=== PATIENT | female | born 1940 | race Caucasian/White ===

== ENCOUNTER → 2016-02-15 | Outpatient (CLI) | payer MEDICARE, OTHER ==
--- NOTE | 2016-02-15 09:49 | MRI ---
EXAM DESCRIPTION: Brain MRI. CLINICAL HISTORY: Acute onset of Dizziness COMPARISON: None. TECHNIQUE: Multiplanar, multisequence MR images were acquired without IV contrast. FINDINGS: The midline structures are unremarkable on today's study. No restricted diffusion on today's exam. Extensive chronic microvascular ischemic change with confluent T2 hyperintensities noted within the subcortical, deep and periventricular white matter. No evidence of acute or old infarct. No abnormal extra-axial fluid. The ventricles are midline and unremarkable. The basilar cisterns are widely patent. Flow voids are maintained within the intracranial vessels. The orbits and globes are unremarkable. The paranasal sinuses are clear except for mild mucosal thickening within the sphenoid sinuses. IMPRESSION: Today's exam demonstrates extensive chronic microvascular ischemic change with no evidence of an acute infarct on today's exam. The remaining study is unremarkable. Electronically signed by: Tommy Childress MD 02/15/2016 09:48
== END ==
LOC: MRI 08:18
PROVIDERS: ATTEND Nurse Practitioner Family
DX: R42 Dizziness and giddiness (principal)

== ENCOUNTER → 2016-03-31 | Outpatient (CLI) | payer MEDICARE, OTHER | END | disposition home or self-care (01) | LOC: GMAM 15:32 | PROVIDERS: ATTEND Family Medicine | DX: D51.9 Vitamin B12 deficiency anemia, unspecified (principal); E55.9 Vitamin D deficiency, unspecified; R31.29 Other microscopic hematuria ==

== ENCOUNTER 2016-04-12 13:54 | Emergency (ER) | payer MEDICARE, OTHER ==
[2016-04-12] MEDS ORDERED: KETOROLAC TROMETHAMINE INJ 30 MG/ML VIAL IM ONE (14:14)
--- NOTE | 2016-04-12 15:15 | RAD ---
PROCEDURE: Chest,2 Views CLINICAL HISTORY: upper thoracic pain INDICATION: Same as above COMPARISON: 02/18/2015 TECHNIQUE: PA and and lateral chest radiographs were obtained. FINDINGS: Note is again made of a benign calcified granuloma in the left upper lobe of the lung. Degenerative changes are seen in the thoracic spine. There are no discrete airspace infiltrates, pneumothoraces or pleural effusions. The pulmonary vascularity is normal The cardiomediastinal silhouette is unremarkable for patient's age and sex. IMPRESSION: There is no acute pleural-parenchymal process seen in the imaged lung omer. Degenerative changes are seen in the thoracic spine. Place of interpretation: [facility]. Electronically signed by: Wilder Haynes MD 04/12/2016 3:14 PM [facility]
--- NOTE | 2016-04-12 15:17 | RAD ---
PROCEDURE: Cervical Spine,3 Views Clinical History: upper thoracic pain Indication: Same as above Comparison: None . Technique: 3.0 views of the cervical spine were done. Findings: There is no loss of vertebral body height. The intervertebral disc spaces are well-maintained. Minimal anterior osteophyte formation is seen at C4 and C5 levels suggestive of underlying mild degenerative change The prevertebral soft tissues appear unremarkable. The bone mineralization is normal for patient's age and sex. The posterior elements are normal. The craniovertebral junction, tip of the odontoid process, C1/C2 alignment and the C7/T1 interface is intact. The laryngotracheal airway is widely patent. The adjacent soft tissues are radiographically unremarkable. There is no visualization of any radiopaque foreign bodies in the soft tissues. Impression: Minimal anterior osteophyte formation is seen at C4 and C5 levels suggestive of underlying mild degenerative change Place of interpretation: [id number]. Electronically signed by: Wilder Haynes MD 04/12/2016 3:16 PM STIPPLER
[2016-04-12] MEDS ORDERED: KETOROLAC TROMETHAMINE INJ 30 MG/ML VIAL ONE (15:19)
--- NOTE | 2016-04-12 15:52 | ED.PDOC ---
History of Present Illness - General Chief Complaint: Chest Pain/IA Stated Complaint: LEFT SHOULDER PAIN Time Seen by Provider: 04/12/16 14:13 Source: patient Exam Limitations: no limitations - History of Present Illness Initial Comments: the patient is a 75-year-old female presenting to the emergency room secondary to pain in her left shoulder and posterior upper back that radiates down the left arm and up to her scalp. This pain has been present for less than 24 hours. It is worse with movement. It is worse with turning her head and looking to the left. She does not recall injuring it in the last few days. No definite repetitive motions. She has not had this problem before. No recent injuries. No chest pain. No shortness of breath. no syncope or Near syncope or palpitations.the patient is also complaining of mild urinary frequency. No burning. No back pain in the lower back. Timing/Duration: 24 hours Severity: moderate Improving Factors: rest Worsening Factors: movement Associated Symptoms: denies symptoms Allergies/Adverse Reactions: Allergies Sulfa Antibiotics Allergy (Severe, Verified 03/16/14 10:46) Rash Lisinopril Allergy (Mild, Verified 09/12/14 16:24) makes her cough Sulfamethoxazole w/Trimethoprim [From Bactrim] Allergy (Unknown, Verified 12:16) Aspirin Adverse Reaction (Verified 02/18/15 19:56) Feels like it villa her stomache Home Medications: Ambulatory Orders Multiple Vitamin [Multi-Vitamin] 1 tab PO DAILY 03/16/14 Raloxifene HCl [Evista] 60 mg PO DAILY 03/16/14 Valsartan [Diovan] 160 mg PO DAILY 03/16/14 Naproxen [Naprosyn] 500 mg PO PRN PRN 02/18/15 Warfarin Sodium 5 mg PO DAILY 02/18/15 predniSONE [Prednisone] 20 mg PO DAILY #7 tab 02/18/15 Cyclobenzaprine HCl [Flexeril] 5 mg PO TID PRN #30 tab 04/12/16 Review of Systems - Review of Systems Constitutional: States: no symptoms reported EENTM: States: no symptoms reported Respiratory: States: no symptoms reported Cardiology: States: no symptoms reported Gastrointestinal/Abdominal: States: no symptoms reported Genitourinary: States: no symptoms reported Musculoskeletal: States: see HPI Skin: States: no symptoms reported Neurological: States: no symptoms reported All other Systems: No Change from Baseline Past Medical History (General) - Patient Medical History Hx Seizures: No Hx Stroke: Yes - tia Hx Dementia: No Hx Asthma: No Hx of COPD: No Hx Cardiac Disorders: Yes Hx Congestive Heart Failure: No Hx Pacemaker: No Hx Hypertension: Yes Hx Thyroid Disease: No Hx Diabetes: No Hx Gastroesophageal Reflux: Yes Hx Renal Disease: No Hx Cancer: Yes - cervical prior to removal; 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 Hx of HIV: No Hx Hepatitis C: No Hx MRSA: No - Vaccination History Hx Tetanus, Diphtheria Vaccination: Yes Hx Influenza Vaccination: Yes - 2016 Hx Pneumococcal Vaccination: Yes - Social History Hx Tobacco Use: No Hx Chewing Tobacco Use: No Hx Alcohol Use: Yes - occasional Hx Substance Use: No Hx Substance Use Treatment: No Hx Depression: No Hx Physical Abuse: No Hx Emotional Abuse: No Hx Suspected Abuse: No - Female History Patient is a Female of Child Bearing Age (10 -59 yrs old): No Patient : No Family Medical History - Family History Mother Family History: No Known Living Status: Hx Family Congestive Heart Failure: Yes Physical Exam - Physical Exam General Appearance: Alert, Comfortable, No apparent distress Eye Exam: bilateral normal Ears, Nose, Throat: hearing grossly normal, normal ENT inspection, normal pharynx Neck: full range of motion, supple, other - there is some muscle spasm to the left of the cervical spine primarily with turning to the left. She hasn't tenderness to palpation to the left the cervical spine that extends down the length of trapezius muscle that is worse just superior to the rhomboid muscle. Respiratory: chest non-tender, lungs clear, normal breath sounds, no respiratory distress, no accessory muscle use Cardiovascular/Chest: normal peripheral pulses, regular rate, rhythm, no edema Peripheral Pulses: radial,right: 2+, radial,left: 2+ Gastrointestinal/Abdominal: normal bowel sounds, non tender, soft Rectal Exam: deferred Back Exam: no vertebral tenderness, other - see history of present illness. The patient does have tenderness to palpation over the trapezius muscle, worse just superior to the rhomboid muscle. There is obvious muscle spasm. 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 She needs to increase her fluid intake. She needs to do stretches to keep the shoulder stretched out. She was given 1 dose of Toradol with good benefit here. She can take Aleve 2 tablets twice daily at home. She' ll be written for Flexeril for 3 times a day use as needed. She needs to be careful for drowsiness with this medication. Topical heat in the form of a heat pad or icy hot or Biofreeze may prove beneficial. ER warnings are given for any acute worsening. Expect symptoms to last around 1 week. x-rays of the chest and cervical spine are reassuring. Urinalysis was clear today. - Results/Orders Results/Orders: x-ray of the chest and cervical spine show no evidence of any acute pathology. She does have arthritis. She does have chronic findings on her chest x-ray. Telemetry monitoring shows normal sinus rhythm and mild sinus bradycardia. EKG shows no acute ST segment changes concerning for ischemia. Normal axis. Normal sinus rhythm. Departure - Departure Clinical Impression: Trapezius muscle spasm Disposition: Discharge to Home or Self Care Condition: Fair Departure Forms: ED Discharge - Pt. Copy, Patient Portal Self Enrollment Instructions: DI for Back Spasm Diet: regular diet Activity: increase activity as tolerated Referrals: Farhad Del Rio MD [Primary Care Provider] - 1-2 Weeks Prescriptions: Cyclobenzaprine HCl [Flexeril] 5 mg PO TID PRN #30 tab PRN Reason: Muscle Spasms Home Medications: Ambulatory Orders Multiple Vitamin [Multi-Vitamin] 1 tab PO DAILY 03/16/14 Raloxifene HCl [Evista] 60 mg PO DAILY 03/16/14 Valsartan [Diovan] 160 mg PO DAILY 03/16/14 Naproxen [Naprosyn] 500 mg PO PRN PRN 02/18/15 Warfarin Sodium 5 mg PO DAILY 02/18/15 predniSONE [Prednisone] 20 mg PO DAILY #7 tab 02/18/15 Cyclobenzaprine HCl [Flexeril] 5 mg PO TID PRN #30 tab 04/12/16 Additional Instructions: the patient is a 75-year-old female presenting with trapezius spasm on the left. She needs to increase her fluid intake. She needs to do stretches to keep the shoulder stretched out. She was given 1 dose of Toradol with good benefit here. She can take Aleve 2 tablets twice daily at home. She' ll be written for Flexeril for 3 times a day use as needed. She needs to be careful for drowsiness with this medication. Topical heat in the form of a heat pad or icy hot or Biofreeze may prove beneficial. ER warnings are given for any acute worsening. Expect symptoms to last around 1 week. x-rays of the chest and cervical spine are reassuring. Urinalysis was clear today.
[2016-04-12] MEDS ORDERED: CYCLOBENZAPRINE HCL 10 MG TAB PO ONE (15:57)
[2016-04-12 17:02] VITALS: BP 144/68; TEMP 98.9; O2SAT 95
== END 2016-04-12 16:10 | disposition home or self-care (01) ==
LOC: ER 13:54
DX: M62.838 Other muscle spasm (principal); I10 Essential (primary) hypertension; Z86.73 Personal history of transient ischemic attack (TIA), and cerebral infarction without residual deficits; Z79.899 Other long term (current) drug therapy; Z79.01 Long term (current) use of anticoagulants; Z88.2 Allergy status to sulfonamides; Z88.6 Allergy status to analgesic agent; Z88.8 Allergy status to other drugs, medicaments and biological substances
CPT/HCPCS: 71020; 72040; 81001; 93005; 94760; J1885

== ENCOUNTER → 2016-04-16 | Outpatient (CLI) | payer MEDICARE, OTHER | END | disposition home or self-care (01) | LOC: GMAM 16:46 | PROVIDERS: ATTEND Family Medicine | DX: L60.8 Other nail disorders (principal) ==

== ENCOUNTER 2016-04-21 13:14 | Emergency (ER) | payer MEDICARE, OTHER ==
[2016-04-21 13:49] VITALS: BP 130/73; TEMP 99.6; O2SAT 92
[2016-04-21] MEDS ORDERED: SODIUM PHOS/BIPHOS ENEMA ADULT 133 ML BTTL PR ONE (14:10)
--- NOTE | 2016-04-21 14:13 | ED.PDOC ---
History of Present Illness - General Chief Complaint: GI Problem Stated Complaint: Constipation Time Seen by Provider: 04/21/16 14:09 Source: patient, RN notes reviewed, Vital Signs reviewed Exam Limitations: no limitations - History of Present Illness Initial Comments: Patient is a 75 y/o female who has had constipation for the past 3 days. She has been taking cyclobenzaprine for her shoulder, and has had constipation since. Her last bowel movement was 4 days ago. She has left lower quadrant pain. No nausea/vomiting. Timing/Duration: other - 3 days Severity: moderate Improving Factors: nothing Worsening Factors: medication Associated Symptoms: denies symptoms Allergies/Adverse Reactions: Allergies Sulfa Antibiotics Allergy (Severe, Verified 04/21/16 13:49) Rash Lisinopril Allergy (Mild, Verified 04/21/16 13:49) makes her cough Sulfamethoxazole w/Trimethoprim [From Bactrim] Allergy (Unknown, Verified 13:49) Aspirin Adverse Reaction (Verified 04/21/16 13:49) Feels like it villa her stomache Home Medications: Ambulatory Orders Multiple Vitamin [Multi-Vitamin] 1 tab PO DAILY 03/16/14 Raloxifene HCl [Evista] 60 mg PO DAILY 03/16/14 Valsartan [Diovan] 160 mg PO DAILY 03/16/14 Naproxen [Naprosyn] 500 mg PO PRN PRN 02/18/15 Warfarin Sodium 5 mg PO DAILY 02/18/15 Cyclobenzaprine HCl [Flexeril] 5 mg PO TID PRN #30 tab 04/12/16 Review of Systems - Review of Systems Constitutional: States: no symptoms reported EENTM: States: no symptoms reported Respiratory: States: no symptoms reported Cardiology: States: no symptoms reported Gastrointestinal/Abdominal: States: abdominal pain, constipation. Denies: nausea, vomiting Genitourinary: States: no symptoms reported Musculoskeletal: States: back pain, joint pain Skin: States: no symptoms reported Neurological: States: no symptoms reported Endocrine: States: no symptoms reported Hematologic/Lymphatic: States: easy bleeding, easy bruising All other Systems: Reviewed and Negative Past Medical History (General) - Patient Medical History Hx Seizures: No Hx Stroke: Yes - tia Hx Dementia: No Hx Asthma: No Hx of COPD: No Hx Cardiac Disorders: Yes Hx Congestive Heart Failure: No Hx Pacemaker: No Hx Hypertension: Yes Hx Thyroid Disease: No Hx Diabetes: No Hx Gastroesophageal Reflux: Yes Hx Renal Disease: No Hx Cancer: Yes - cervical prior to removal; 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 Hx of HIV: No Hx Hepatitis C: No Hx MRSA: No - Vaccination History Hx Tetanus, Diphtheria Vaccination: Yes Hx Influenza Vaccination: Yes - 2016 Hx Pneumococcal Vaccination: Yes - Social History Hx Tobacco Use: No Hx Chewing Tobacco Use: No Hx Alcohol Use: Yes - occasional Hx Substance Use: No Hx Substance Use Treatment: No Hx Depression: No Hx Physical Abuse: No Hx Emotional Abuse: No Hx Suspected Abuse: No - Female History Patient : No Family Medical History - Family History Mother Family History: No Known Living Status: Hx Family Congestive Heart Failure: Yes Physical Exam - Physical Exam General Appearance: Alert, Obvious distress - Mild Ears, Nose, Throat: hearing grossly normal, normal ENT inspection Respiratory: lungs clear, normal breath sounds, no respiratory distress, no accessory muscle use Cardiovascular/Chest: regular rate, rhythm, no edema, no gallop, no murmur Gastrointestinal/Abdominal: abnormal bowel sounds - decreased, distended - mildly, tenderness - left lower - mild Extremity: normal range of motion, non-tender, normal inspection, no pedal edema , no calf tenderness Neurologic: alert, normal mood/affect, oriented x 3 Skin Exam: normal color, warm/dry Progress - Progress Progress: 04/21/16 14:51 After a Fleet's enema, Patient had a bowel movement with good results. She felt much more comfortable and felt she could go home. Departure - Departure Clinical Impression: Constipation by delayed colonic transit Time of Disposition: 14:52 Disposition: Discharge to Home or Self Care Condition: Fair Departure Forms: ED Discharge - Pt. Copy, Patient Portal Self Enrollment Instructions: Constipation, DI for Constipation Diet: resume usual diet Home Medications: Ambulatory Orders Multiple Vitamin [Multi-Vitamin] 1 tab PO DAILY 03/16/14 Raloxifene HCl [Evista] 60 mg PO DAILY 03/16/14 Valsartan [Diovan] 160 mg PO DAILY 03/16/14 Naproxen [Naprosyn] 500 mg PO PRN PRN 02/18/15 Warfarin Sodium 5 mg PO DAILY 02/18/15 Cyclobenzaprine HCl [Flexeril] 5 mg PO TID PRN #30 tab 04/12/16 Additional Instructions: Start over the counter stool softener (docusate sodium 100 mg) as needed for hard stools or constipation. Increase fiber in diet. Stay well-hydrated. If symptoms persist, follow up with PCP. Follow up in ED if symptoms worsen.
== END 2016-04-21 16:00 | disposition home or self-care (01) ==
LOC: ER 13:14
DX: K59.01 Slow transit constipation (principal); K64.9 Unspecified hemorrhoids; Z86.73 Personal history of transient ischemic attack (TIA), and cerebral infarction without residual deficits; K21.9 Gastro-esophageal reflux disease without esophagitis; I10 Essential (primary) hypertension; Z85.41 Personal history of malignant neoplasm of cervix uteri; Z85.820 Personal history of malignant melanoma of skin; Z79.01 Long term (current) use of anticoagulants; Z79.899 Other long term (current) drug therapy; Z88.2 Allergy status to sulfonamides; Z79.82 Long term (current) use of aspirin; Z88.8 Allergy status to other drugs, medicaments and biological substances

== ENCOUNTER 2016-07-04 18:39 | Emergency (ER) | payer MEDICARE ==
[2016-07-04] MEDS ORDERED: FLUCONAZOLE 150 MG TAB PO ONE (19:33)
[2016-07-04] MEDS ORDERED: CLINDAMYCIN HCL CAP 150 MG CAP PO ONE (19:33)
[2016-07-04 19:36] VITALS: BP 106/60; TEMP 99.2; O2SAT 98
--- NOTE | 2016-07-04 19:49 | ED.PDOC ---
History of Present Illness - General Chief Complaint: ENT Problem Stated Complaint: sore throat Time Seen by Provider: 07/04/16 18:49 Source: patient Exam Limitations: no limitations - History of Present Illness Initial Comments: The patient is a 75-year-old female presenting to the emergency room secondary to pharyngitis on the right present for approximately one week. The patient saw her primary care doctor and was tested for Streptococcus 2 days ago and apparently tested negative. She was placed on Levaquin. She reports a pharyngitis has not improved. She has some pain with swallowing. No definite fevers. No obvious mass. No history of any tonsillar or oropharyngeal cancers. No weight loss. She has not been taking any Tylenol or ibuprofen. She did apparently have multiple episodes of tonsillitis when she was younger. she does not appear to be in any distress. she is upset because it still hurts. Timing/Duration: 1 week Severity: moderate Improving Factors: nothing Worsening Factors: nothing Associated Symptoms: malaise Allergies/Adverse Reactions: Allergies Sulfa Antibiotics Allergy (Severe, Verified 07/04/16 19:36) Rash Lisinopril Allergy (Mild, Verified 07/04/16 19:36) makes her cough Sulfamethoxazole w/Trimethoprim [From Bactrim] Allergy (Unknown, Verified 19:36) Cyclobenzaprine Allergy (Verified 07/04/16 19:37) Aspirin Adverse Reaction (Verified 07/04/16 19:36) Feels like it villa her stomache Ibuprofen Adverse Reaction (Verified 07/04/16 19:37) Home Medications: Ambulatory Orders Multiple Vitamin [Multi-Vitamin] 1 tab PO DAILY 03/16/14 Raloxifene HCl [Evista] 60 mg PO DAILY 03/16/14 Valsartan [Diovan] 160 mg PO DAILY 03/16/14 Clindamycin HCl 300 mg PO Q8H #15 cap 07/04/16 Review of Systems - Review of Systems Constitutional: States: no symptoms reported EENTM: States: throat pain Respiratory: States: no symptoms reported Cardiology: States: no symptoms reported Gastrointestinal/Abdominal: States: no symptoms reported Genitourinary: States: no symptoms reported Musculoskeletal: States: no symptoms reported Skin: States: no symptoms reported Neurological: States: no symptoms reported Endocrine: States: no symptoms reported All other Systems: No Change from Baseline Past Medical History (General) - Patient Medical History Hx Seizures: No Hx Stroke: Yes - tia Hx Dementia: No Hx Asthma: No Hx of COPD: No Hx Cardiac Disorders: Yes Hx Congestive Heart Failure: No Hx Pacemaker: No Hx Hypertension: Yes Hx Thyroid Disease: No Hx Diabetes: No Hx Gastroesophageal Reflux: Yes Hx Renal Disease: No Hx Cancer: Yes - cervical prior to removal; 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 Hx of HIV: No Hx Hepatitis C: No Hx MRSA: No Surgical History: cholecystectomy, Hysterectomy - Vaccination History Hx Tetanus, Diphtheria Vaccination: Yes - 2011 Hx Influenza Vaccination: Yes - 10/2015 Hx Pneumococcal Vaccination: Yes - Social History Hx Tobacco Use: No Hx Chewing Tobacco Use: No Hx Alcohol Use: Yes - occasional Hx Substance Use: No Hx Substance Use Treatment: No Hx Depression: No Hx Physical Abuse: No Hx Emotional Abuse: No Hx Suspected Abuse: No - Female History Patient : No Family Medical History - Family History Mother Family History: No Known Living Status: Hx Family Congestive Heart Failure: Yes Physical Exam - Physical Exam General Appearance: Alert, Comfortable, No apparent distress Eye Exam: bilateral normal Ears, Nose, Throat: hearing grossly normal, pharyngeal erythema - primarily on the right with mild swelling. there is possibly a small exudate on the residual right tonsil. Minimal reactive lymphadenopathy felt externally. No definite mass. Neck: non-tender, full range of motion, supple, normal inspection Respiratory: chest non-tender, lungs clear, normal breath sounds, no respiratory distress, no accessory muscle use Cardiovascular/Chest: normal peripheral pulses, no edema, other - egular rate Peripheral Pulses: radial,right: 2+, radial,left: 2+, dorsalis pedis,right: 2+, dorsalis pedis,left: 2+ Gastrointestinal/Abdominal: non tender, soft Rectal Exam: deferred Back Exam: normal inspection, no CVA tenderness, no vertebral tenderness Extremity: normal range of motion, non-tender, normal inspection, no pedal edema , normal capillary refill Neurologic: alert, normal mood/affect, oriented x 3 Skin Exam: normal color Comments: Vital Signs - 24 hr 07/04/16 19:30 Temperature 99.2 F Pulse Rate [ 79 left] Respiratory 20 Rate Blood Pressure 106/60 [left] O2 Sat by Pulse 98 Oximetry Progress - Progress Progress: 07/04/16 19:51 the patient is a 75-year-old female presenting with persistent pharyngitis present for approximately 5-6 days according to her. It is primarily present on the right. She started levofloxacin 2 days ago. Given her history of recurrent tonsillitis we will double cover with clindamycin. It is however entirely possible that this is simply a viral pharyngitis and will run its course on its own. No clinical evidence to support abscess formation at this time. I do want her to follow up with her primary care doctor early next week for reevaluation. She needs to keep herself hydrated. Chloraseptic spray and ibuprofen can be used for symptom relief. ER warnings were given. She was given 1 dose of Diflucan in case there is an overlying fungal etiology. Departure - Departure Clinical Impression: Pharyngitis Disposition: Discharge to Home or Self Care Condition: Fair Departure Forms: ED Discharge - Pt. Copy, Patient Portal Self Enrollment Instructions: Sore Throat Diet: regular diet Activity: increase activity as tolerated Referrals: Farhad Del Rio MD [Primary Care Provider] - 1-5 Days Prescriptions: Clindamycin HCl 300 mg PO Q8H #15 cap Home Medications: Ambulatory Orders Multiple Vitamin [Multi-Vitamin] 1 tab PO DAILY 03/16/14 Raloxifene HCl [Evista] 60 mg PO DAILY 03/16/14 Valsartan [Diovan] 160 mg PO DAILY 03/16/14 Clindamycin HCl 300 mg PO Q8H #15 cap 07/04/16 Additional Instructions: the patient is a 75-year-old female presenting with persistent pharyngitis present for approximately 5-6 days according to her. It is primarily present on the right. She started levofloxacin 2 days ago. Given her history of recurrent tonsillitis we will double cover with clindamycin. It is however entirely possible that this is simply a viral pharyngitis and will run its course on its own. No clinical evidence to support abscess formation at this time. I do want her to follow up with her primary care doctor early next week for reevaluation. She needs to keep herself hydrated. Chloraseptic spray and ibuprofen can be used for symptom relief. ER warnings were given. She was given 1 dose of Diflucan in case there is an overlying fungal etiology.
== END 2016-07-04 20:06 | disposition home or self-care (01) ==
LOC: ER 18:39
DX: J02.9 Acute pharyngitis, unspecified (principal); I10 Essential (primary) hypertension; K21.9 Gastro-esophageal reflux disease without esophagitis; Z88.2 Allergy status to sulfonamides; Z88.6 Allergy status to analgesic agent; Z88.8 Allergy status to other drugs, medicaments and biological substances; Z79.899 Other long term (current) drug therapy; Z86.73 Personal history of transient ischemic attack (TIA), and cerebral infarction without residual deficits; Z85.41 Personal history of malignant neoplasm of cervix uteri; Z85.820 Personal history of malignant melanoma of skin

== ENCOUNTER 2016-10-28 10:49 | Observation (INO) | payer MEDICARE, BC ==
[2016-10-28] MEDS ORDERED: NITROGLYCERIN 0.4 MG 25 EA TAB SL ONE (11:04)
[2016-10-28] MEDS: ASPIRIN TABLET 325 MG TAB PO ONE ×2 (11:13→11:25)
--- NOTE | 2016-10-28 11:23 | RAD ---
EXAM DESCRIPTION: Chest,1 View CLINICAL HISTORY: Chest discomfort COMPARISON: April 12, 2016 IMPRESSION: Single AP portable upright view of the chest shows cardiac silhouette and pulmonary vasculature to be within normal limits. Lungs are mildly hypoaerated. No acute infiltrate or consolidation is seen. A calcified pulmonary nodule in the left upper lobe and calcified lymph nodes in the left hilum are seen.. No obvious pleural effusion or pneumothorax is seen. Electronically signed by: Blaine Hall MD 10/28/2016 11:22 AM CDT
--- NOTE | 2016-10-28 11:43 | ED.PDOC ---
History of Present Illness - General Chief Complaint: Chest Pain/CT Stated Complaint: Chest pain, L arm pain Time Seen by Provider: 10/28/16 11:05 Source: patient - History of Present Illness Initial Comments: PT PRESENTS TO THE ED WITH COMPLAINTS OF CHEST PAIN RADIATING TO THE LEFT ARM THAT OCCURRED YESTERDAY EVENING THEN SPONTANEOUSLY RESOLVED. PT REPORT THAT L ARM PAIN RETURNED THIS MORNING AND IS ASSOCIATED WITH DIZZINESS. PT RATES HER PAIN CURRENTLY AT 6/10. Timing/Duration: 24 hours Severity: moderate Location: central Activities at Onset: none Prior Chest Pain/Cardiac Workup: no prior chest pain, no prior cardiac workup Improving Factors: nothing Worsening Factors: nothing Nitro Today/Relief: no nitro taken today Aspirin Treatment Today: no aspirin today Associated Symptoms: denies symptoms Allergies/Adverse Reactions: Allergies Sulfa Antibiotics Allergy (Severe, Verified 07/04/16 19:36) Rash Lisinopril Allergy (Mild, Verified 10/28/16 10:59) Other makes her cough Sulfamethoxazole w/Trimethoprim [From Bactrim] Allergy (Unknown, Verified 19:36) Cyclobenzaprine Allergy (Verified 07/04/16 19:37) Aspirin Adverse Reaction (Verified 10/28/16 10:59) Other Feels like it villa her stomache Causes constipation Ibuprofen Adverse Reaction (Verified 10/28/16 10:59) Other Causes constipation Home Medications: Ambulatory Orders Multiple Vitamin [Multi-Vitamin] 1 tab PO DAILY 03/16/14 Raloxifene HCl [Evista] 60 mg PO DAILY 03/16/14 Valsartan [Diovan] 160 mg PO DAILY 03/16/14 Review of Systems - Review of Systems Constitutional: Denies: chills, fever EENTM: Denies: eye pain, blurred vision Respiratory: States: see HPI, cough - NIGHTLY X 1 MONTH. Denies: short of breath Cardiology: States: see HPI, chest pain. Denies: palpitations Gastrointestinal/Abdominal: Denies: abdominal pain, diarrhea, vomiting Genitourinary: Denies: dysuria, frequency Musculoskeletal: Denies: joint pain, joint swelling Skin: Denies: dryness, lesions Neurological: Denies: headache, numbness Endocrine: States: no symptoms reported Hematologic/Lymphatic: States: no symptoms reported Past Medical History (General) - Patient Medical History Hx Seizures: No Hx Stroke: Yes - TIA X 2, CVA X 1 Hx Dementia: No Hx Asthma: No Hx of COPD: No Hx Cardiac Disorders: Yes Hx Congestive Heart Failure: No Hx Pacemaker: No Hx Hypertension: Yes Hx Thyroid Disease: No Hx Diabetes: No Hx Gastroesophageal Reflux: Yes Hx Renal Disease: No Hx Cancer: Yes - cervical prior to removal; 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 Hx of HIV: No Hx Hepatitis C: No Hx MRSA: No Surgical History: appendectomy, cholecystectomy, colectomy - FOR DIVERTICULITIS Other Surgeries:: HYSTERECTOMY - Vaccination History Hx Tetanus, Diphtheria Vaccination: Yes - 2011 Hx Influenza Vaccination: Yes - 2015 Hx Pneumococcal Vaccination: Yes - Social History Hx Tobacco Use: No Hx Chewing Tobacco Use: No Hx Alcohol Use: No Hx Substance Use: No Hx Substance Use Treatment: No Hx Depression: No Hx Physical Abuse: No Hx Emotional Abuse: No Hx Suspected Abuse: No - Female History Patient : No Family Medical History - Family History Mother Family History: No Known Living Status: Hx Family Congestive Heart Failure: Yes Physical Exam - Physical Exam General Appearance: Alert, No apparent distress, Well Developed, Well Groomed, Well Hydrated Eyes, Ears, Nose, Throat Exam: normal ENT inspection Neck: full range of motion, supple, normal inspection Respiratory: lungs clear, normal breath sounds, no respiratory distress, no accessory muscle use Cardiovascular/Chest: regular rate, rhythm, no murmur Gastrointestinal/Abdominal: non tender, soft Extremity: non-tender, normal inspection, no pedal edema Neurologic: alert, normal mood/affect, oriented x 3 Skin Exam: normal color, warm/dry Progress - Progress Progress: 10/28/16 12:50 PT REPORTS COMPLETE RESOLUTION OF L ARM PAIN AFTER 1 SL NTG. - EKG/XRAY/CT EKG: Sinus - @62BPM, NL INTERVALS, NL AXIS, no ST T wave changes - NO OLD FOR COMPARISON XRAY: chest - PULMONARY NODULE AMOS, CALCIFIED LYMPH NODES IN THE L HILUM Departure - Departure Clinical Impression: Chest pain, Radicular pain in left arm, Uncontrolled hypertension Time of Disposition: 13:36 Disposition: Admit Patient Condition: Good Departure Forms: ED Discharge - Pt. Copy, Patient Portal Self Enrollment Referrals: Farhad Del Rio MD [Primary Care Provider] - 1-2 Weeks Home Medications: Ambulatory Orders Multiple Vitamin [Multi-Vitamin] 1 tab PO DAILY 03/16/14 Raloxifene HCl [Evista] 60 mg PO DAILY 03/16/14 Valsartan [Diovan] 160 mg PO DAILY 03/16/14 Decision To Admit - Decistion To Admit Decision to Admit Reason: Admit from ER - CHEST PAIN Decision to Admit Date: 10/28/16 Decision to Admit Time: 13:37 - CASE DISCUSSED WITH KEVIN VAN NP AND HE AGREES TO ADMIT PATIENT
--- NOTE | 2016-10-28 15:06 | HP ---
SUPERVISING PHYSICIAN: Josué Hernandez MD CHIEF COMPLAINT: Chest pain, left arm pain. HISTORY OF PRESENT ILLNESS: Ms. Aragon is a 76 year-old female patient that presented to the Emergency Room complaining of chest pains that have been radiating into her left arm. She noted the chest pains started occurring yesterday. She noted that she went dancing last night and this morning she was having some pain and dizziness and presented to the Emergency Room listed as 6 out of 10. She was given Nitroglycerin in the Emergency Department which did resolve her pain completely. Her laboratory studies initially showed cardiac enzymes to be within normal limits with a troponin of less than 0.02. The patient has no significant history of a past cardiac history but given the chest pain and need to further rule out acute cardiac event and acute changes, Dr. Damon requested the patient be placed in observation. Her initial EKG prior to admission to the medical/surgical floor showed sinus rhythm with no ST-T wave changes but there was no comparison available for review. She had a chest x-ray which did show a pulmonary nodule in the left upper lobe and some calcified lymph nodes in the left hilum. She is placed in observation in stable condition and she was pain free at time of admission. PAST MEDICAL HISTORY: 1. Allergies. 2. Hypertension. 3. Transient ischemic attack. PAST SURGICAL HISTORY: 1. Bladder suspension. 2. Cataract removal. 3. Colectomy for diverticulosis. 4. Cholecystectomy. 5. Hysterectomy. HOME MEDICATIONS: 1. Xarelto 20 mg for previous TIAs. 2. Diovan 160 mg daily. 3. Evista 60 mg daily. 4. Multivitamin 1 tablet daily. ALLERGIES: 1. Sulfa antibiotics. 2. Lisinopril. 3. Aspirin and ibuprofen. . 4. Cyclobenzaprine. FAMILY HISTORY: Positive for cardiovascular disease and congestive heart failure. SOCIAL HISTORY: Patient lives in [place]. 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 She has never smoked and she drinks alcohol on very rare occasions. REVIEW OF SYSTEMS: CONSTITUTIONAL: Denies any fever or chills. HEENT: Denies blurred vision, headaches or vision changes. RESPIRATORY: As noted in history of present illness. She has had a cough nightly over the last month but denies any shortness of breath. CARDIOVASCULAR: As noted in the history of present illness with chest pains but she denies any palpitations or syncopal episodes. GASTROINTESTINAL: Denies any abdominal pain, diarrhea, vomiting or constipation. GENITOURINARY: Denies dysuria, hematuria or other urinary symptoms. NEUROLOGICAL: Denies headaches, numbness or syncopal episodes or other neurological focal deficits. PHYSICAL EXAMINATION: VITAL SIGNS: Temperature 98, pulse 62, blood pressure 151/82, respirations 18 , saturation 95% on room air. Admission 74.8 kg. GENERAL: The patient on admission to the medical/surgical floor appeared to be in no acute distress, is very comfortable and alert, well hydrated and well- nourished. HEENT: Tympanic membranes are clear bilaterally. Pharynx is pink and moist without any lesions. NECK: Supple, non-tender with full range of motion. No jugular venous distention. CHEST: Clear to auscultation bilaterally without any rhonchi, rales, or wheezes. CARDIOVASCULAR: Regular rate and rhythm without appreciable murmurs, rubs, or gallops. ABDOMEN: Soft, non-tender, positive bowel sounds. EXTREMITIES: No cyanosis, clubbing, or edema. NEUROLOGIC: Cranial nerves II through XII grossly intact. Facial features symmetrical. Extraocular movements was negative. There was no notable nystagmus. She was alert and oriented x 3. LABORATORY: CBC showed white count of 4.7, hemoglobin 13.2, hematocrit 39.8, platelet count 185,000, differential within normal limits. Coagulation studies showed just a slightly elevated PT of 13.3 with INR of 1.18 with PTT of 32.5. Chemistries showed normal electrolytes, potassium at 4.1, BUN 17, creatinine 0.5 , calcium 9.2, magnesium 2.0. Initial cardiac enzymes less than 0.02. BNP 33.4. Urinalysis pending. RADIOLOGY: Chest x-ray in the Emergency Department prior to admission, single- view, showed no obvious pleural effusions or pneumothorax. Lungs were hyperaerated, no acute infiltrate or consolidation seen. There was a calcified pulmonary nodule in the left upper lobe and calcified lymph node within the left hilum. Pulmonary vasculature was within normal limits. ASSESSMENT: 1. Chest pain requiring rule out ischemic event. 2. Seasonal allergies. 3. Hypertension. 4. 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 PLAN: The patient was given Nitroglycerin in the Emergency Room and was found to be pain free and stable. Initial cardiac enzymes were negative for acute changes as well as EKG and after discussion with Dr. Damon, patient was admitted to observation. Will continue with cardiac monitoring on telemetry and repeat cardiac enzymes every 6 hours and again in the morning. She will be started on a nitro patch probably at 0.4 mg per hour. She was not given aspirin in the Emergency Department as she did show an allergy to aspirin previously. Anticipate length of stay to be 1 to 2 days with anticipation of discharge in the morning. Once stable, she can be discharged to have close clinical followup with her primary care physician, Dr. Del Rio, as well as Cardiology which can be arranged through the clinic. Until discharge, we will continue to monitor him closely and treat appropriately. #[id number] [facility]
[2016-10-28] MEDS ORDERED: NITROGLYCERIN 0.4 MG 25 EA TAB SL PRN (16:34)
[2016-10-28] MEDS ORDERED: SODIUM CHLORIDE 0.9% (FLUSH) 10 ML SYG IV PRN (16:34)
[2016-10-28] MEDS ORDERED: MORPHINE SULFATE INJ 10 MG/ML VIAL IV PRN (16:34)
[2016-10-28] MEDS ORDERED: IV SET AND CAP CHANGE INJ INJ SCH (17:00)
[2016-10-28] MEDS: NITROGLYCERIN 0.4 MG/HR PATCH TOP SCH (17:13)
[2016-10-28] MEDS: SODIUM CHLORIDE 0.9% (FLUSH) 10 ML SYG IV SCH (21:13)
--- NOTE | 2016-10-28 22:47 | PCM.CORE ---
Physician DVT/VTE - Prophylaxis Currently: Patient already on anticoagulation therapy - xarelto - Nurse DVT Assessment & Total Each Risk Factor Represents 3 Points: Age over 75 years Each Risk Factor Represents 2 Points: Major Surgery >45 minutes Each Risk Factor is 1 Point: Obesity (BMI >25) DVT Assessment Score: 6 - 5 or more Very High Risk Treatments: Early Ambulation *, Sequential Compression Device
[2016-10-29] MEDS ORDERED: RIVAROXABAN 10 MG TAB ONE (08:00)
[2016-10-29] MEDS ORDERED: VALSARTAN 80 MG TAB ONE (08:01)
[2016-10-29] MEDS: SODIUM CHLORIDE 0.9% (FLUSH) 10 ML SYG IV SCH (08:07)
[2016-10-29] MEDS: NITROGLYCERIN 0.4 MG/HR PATCH TOP SCH (08:08)
[2016-10-29] MEDS ORDERED: NON-FORMULARY MEDICATION 1 EA MIS (Raloxifene Hcl [Evista] 60 MG) PO SCH (09:00)
[2016-10-29] MEDS ORDERED: VALSARTAN 80 MG TAB PO SCH (09:00)
[2016-10-29] MEDS ORDERED: ASPIRIN TABLET 325 MG TAB PO SCH (09:00)
[2016-10-29] MEDS ORDERED: RIVAROXABAN 10 MG TAB PO SCH (09:00)
[2016-10-29 13:58] VITALS: BP 130/60; TEMP 97.5; O2SAT 97
--- NOTE | 2016-10-29 16:29 | DS ---
DISCHARGE DIAGNOSIS: 1. Acute chest pain with no evidence of underlying ischemic coronary disease at this time after observing overnight. 2. History of hypertension. 3. History of several transient ischemic attacks in the past currently on Xarelto. 4. History of seasonal allergies. HISTORY OF PRESENT ILLNESS: This 76 year-old white female is placed in the hospital from the Emergency Room because of onset of severe chest discomforts, especially involving the left shoulder and arm significantly helped by Nitroglycerin sublingually. No previous history of significant cardiac events. The patient was placed in the hospital for observation with serial EKG and cardiac enzymes to assist with ruling out underlying ischemic coronary disease contributing to her symptoms. LABORATORY: White count is up to 6,800, hemoglobin 12.3. INR 1.18. Chemistries showed potassium 4.1, BUN 18, creatinine 0.65, osmolality on discharge 279. Liver enzymes otherwise normal with alkaline phosphatase 30. Repeat cardiac enzymes with troponin being zero during hospital stay. Beta natriuretic peptide 33.4, albumin 3.3, cholesterol 117. No cultures obtained. Chest x-ray was performed in the Emergency Room and showed no acute findings at this time. PLAN: The patient's condition slowly improved to the point where she had no further discomfort and was actually much ready and willing to be able to continue with her ongoing care in the outpatient department. She is to be scheduled to see Dr. Del Rio in the next 1 to 2 weeks or sooner if need be. She is to stay active and breathe deeply. Refer to home medications. Return if not improving. #[id number] [facility]
[2016-10-29] MEDS ORDERED: REMOVE OLD PATCH TOP SCH (21:00)
== END 2016-10-29 16:51 | disposition home or self-care (01) ==
LOC: ER 10:49 → MS 14:40
PROVIDERS: ADMIT Nurse Practitioner Family; ATTEND Emergency Medicine
DX: R07.89 Other chest pain (principal); I10 Essential (primary) hypertension; J30.2 Other seasonal allergic rhinitis; R91.1 Solitary pulmonary nodule; Z79.01 Long term (current) use of anticoagulants; Z79.899 Other long term (current) drug therapy; Z86.73 Personal history of transient ischemic attack (TIA), and cerebral infarction without residual deficits; Z88.2 Allergy status to sulfonamides; Z88.6 Allergy status to analgesic agent; Z88.8 Allergy status to other drugs, medicaments and biological substances; Z90.49 Acquired absence of other specified parts of digestive tract; Z90.710 Acquired absence of both cervix and uterus; Z82.49 Family history of ischemic heart disease and other diseases of the circulatory system
CPT/HCPCS: 36415 ×5; 71010; 80048; 80053; 80061; 82550 ×3; 82553 ×3; 83880; 84484 ×4; 85025 ×2; 85610; 85730; 93005 ×3; 94760 ×2; 96374; 99284; G0378; J2270

== ENCOUNTER 2016-12-24 15:47 | Emergency (ER) | payer MEDICARE, BC ==
--- NOTE | 2016-12-24 16:24 | ED.PDOC ---
History of Present Illness - General Chief Complaint: Trauma Stated Complaint: RIGHT KNEE PAIN Time Seen by Provider: 12/24/16 16:13 Source: patient Exam Limitations: no limitations - History of Present Illness Initial Comments: PT PRESENTS TO THE ED WITH COMPLAINTS OF RIGHT KNEE PAIN AFTER FALLING ON CONCRETE WHEN SHE WAS STEPPING OFF OF A TRAILER. PT REPORTS BEING ABLE TO BEAR WEIGHT BUT REPORTS SEVERE PAIN WITH BENDING THE KNEE. Occurred: just prior to arrival Severity: moderate Injuries/Pain Location: lower extremity Reason for Fall: lost balance Loss of Consciousness: no loss of consciousness Improving Factors: immobilization Worsening Factors: movement Associated Symptoms (Fall): denies symptoms Allergies/Adverse Reactions: Allergies Sulfa Antibiotics Allergy (Severe, Verified 07/04/16 19:36) Rash Lisinopril Allergy (Mild, Verified 10/28/16 10:59) Other makes her cough Sulfamethoxazole w/Trimethoprim [From Bactrim] Allergy (Unknown, Verified 19:36) Cyclobenzaprine Allergy (Verified 07/04/16 19:37) Aspirin Adverse Reaction (Verified 10/28/16 10:59) Other Feels like it [place] her stomache Causes constipation Ibuprofen Adverse Reaction (Verified 10/28/16 10:59) Other Causes constipation Home Medications: Ambulatory Orders Multiple Vitamin [Multi-Vitamin] 1 tab PO DAILY 03/16/14 Raloxifene HCl [Evista] 60 mg PO DAILY 03/16/14 Valsartan [Diovan] 160 mg PO DAILY 03/16/14 Rivaroxaban [Xarelto] 20 mg PO DAILY 10/28/16 Tramadol-Acetaminophen [Ultracet] 1 - 2 tab PO Q6HR PRN #30 tab 12/24/16 Review of Systems - Review of Systems Constitutional: Denies: chills, fever Respiratory: Denies: cough, short of breath Cardiology: Denies: chest pain, palpitations, syncope Gastrointestinal/Abdominal: Denies: diarrhea, nausea, vomiting Musculoskeletal: States: see HPI, joint pain. Denies: muscle pain, muscle stiffness Past Medical History (General) - Patient Medical History Hx Seizures: No Hx Stroke: Yes - Three TIA's Hx Dementia: No Hx Asthma: No Hx of COPD: No Hx Cardiac Disorders: Yes Hx Congestive Heart Failure: No Hx Pacemaker: No Hx Hypertension: No Hx Thyroid Disease: No Hx Diabetes: No Hx Gastroesophageal Reflux: Yes Hx Renal Disease: No Hx Cancer: Yes - cervical prior to removal; 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 Hx of HIV: No Hx Hepatitis C: No Hx MRSA: No - Vaccination History Hx Tetanus, Diphtheria Vaccination: Yes - 2011 Hx Influenza Vaccination: Yes - 2015 Hx Pneumococcal Vaccination: Yes - Social History Hx Tobacco Use: No Hx Chewing Tobacco Use: No Hx Alcohol Use: No Hx Substance Use: No Hx Substance Use Treatment: No Hx Depression: No Hx Physical Abuse: No Hx Emotional Abuse: No Hx Suspected Abuse: No - Female History Patient : No Physical Exam - Physical Exam General Appearance: Alert, Comfortable, No apparent distress Head Injury: no evidence of injury Eye Exam: bilateral normal ENT Exam: hearing grossly normal Extremity Exam: pain with movement - TO THE RIGHT KNEE, SUPERFICIAL ABRASION APROX 2CM TO THE [place]., other - NEGATIVE ANTERIOR DRAWER SIGN Neurologic: alert, normal mood/affect, oriented x 3 Skin Exam: normal color, warm/dry - [place] Coma Score Best Eye Response (Felix): (4) open spontaneously Best Verbal Response (Felix): (5) oriented Best Motor Response (Felix): (6) obeys commands Fleix Total: 15 Progress - Progress Progress: 12/24/16 17:08 XRAY FINDINGS DISCUSSED. RIGHT KNEE IMMOBILIZER PLACED BY NURSING STAFF AND CHECKED BY ME. PT REMAINS N/V INTACT DISTALLY. - EKG/XRAY/CT XRAY: knee - NO ACUTE FX, DEGENERATIVE CHANGES Departure - Departure Clinical Impression: Knee sprain, Knee contusion Time of Disposition: 17:10 Disposition: Discharge to Home or Self Care Condition: Good Departure Forms: ED Discharge - Pt. Copy, Patient Portal Self Enrollment Instructions: DI for Trauma, DI for Knee Sprain Activity: walking as tolerated Referrals: Farhad Del Rio MD [Primary Care Provider] - 1-2 Weeks Bronson Dill MD [Active Staff] - 1-5 Days Prescriptions: Tramadol-Acetaminophen [Ultracet] 1 - 2 tab PO Q6HR PRN #30 tab PRN Reason: Pain Home Medications: Ambulatory Orders Multiple Vitamin [Multi-Vitamin] 1 tab PO DAILY 03/16/14 Raloxifene HCl [Evista] 60 mg PO DAILY 03/16/14 Valsartan [Diovan] 160 mg PO DAILY 03/16/14 Rivaroxaban [Xarelto] 20 mg PO DAILY 10/28/16 Tramadol-Acetaminophen [Ultracet] 1 - 2 tab PO Q6HR PRN #30 tab 12/24/16
[2016-12-24] MEDS ORDERED: HYDROcodone 7.5MG/APAP 325MG 1 EA TAB PO ONE (16:25)
[2016-12-24 16:35] VITALS: TEMP 98.6; O2SAT 97
--- NOTE | 2016-12-24 16:44 | RAD ---
EXAM DESCRIPTION: Knee,Right 2 or More Views CLINICAL HISTORY: 76 years, Female, TRAUMA COMPARISON: None TECHNIQUE: Three views of the right knee FINDINGS: Moderately advanced degenerative changes involving the patellofemoral compartment and medial joint compartment with preservation of the lateral joint compartment is evident. Very little joint effusion is present. No fracture or dislocation is seen. No foreign body noted. IMPRESSION: 1. Degenerative right knee with sparing of the lateral joint compartment. Electronically signed by: Farhad Gomes MD 12/24/2016 4:43 PM [facility]
[2016-12-24 18:30] VITALS: BP 149/75
== END 2016-12-24 18:22 | disposition home or self-care (01) ==
LOC: ER 15:47
DX: S83.90XA Sprain of unspecified site of unspecified knee, initial encounter (principal); S80.01XA Contusion of right knee, initial encounter; Z86.73 Personal history of transient ischemic attack (TIA), and cerebral infarction without residual deficits; Z85.820 Personal history of malignant melanoma of skin; Z85.41 Personal history of malignant neoplasm of cervix uteri; W17.89XA Other fall from one level to another, initial encounter; Y92.9 Unspecified place or not applicable

== ENCOUNTER → 2017-06-11 | Outpatient (CLI) | payer MEDICARE, BC | LOC: GMAM 14:16 | PROVIDERS: ATTEND Family Medicine | DX: D51.9 Vitamin B12 deficiency anemia, unspecified (principal); E55.9 Vitamin D deficiency, unspecified ==

== ENCOUNTER 2017-10-15 16:32 | Emergency (ER) | payer MEDICARE, BC ==
--- NOTE | 2017-10-15 17:00 | ED.PDOC ---
History of Present Illness - General Chief Complaint: Headache Stated Complaint: Headache, dizziness Time Seen by Provider: 10/15/17 16:42 Source: patient Exam Limitations: no limitations - History of Present Illness Initial Comments: ACUTE ONSET OF LIGHT HEADEDNESS AND VERTIGO ASSOCIATED WITH A UNIERSAL HEADACHE , ONSET THIS AM. THE EPISODES HAVE LASTED AROUND 10 MINUTES EACH AND THEN SUBSIDE SPONTANEOUSLY. DENIES PALPITATIONS, FEVER OR DYSURIA. DENIES TINNITUS , NUASEA OR VOMITING. SHE VOICES THAT SEVERAL YEARS AGO HAD ACUTE BENIGN POSITIONAL VERTIGO AND THE [facility] [employer] HELPED HER Timing/Duration: other - ONE DAY Severity: mild Improving Factors: nothing Worsening Factors: nothing Associated Symptoms: denies symptoms Allergies/Adverse Reactions: Allergies Sulfa Antibiotics Allergy (Severe, Verified 07/04/16 19:36) Rash Lisinopril Allergy (Mild, Verified 10/15/17 16:48) Other makes her cough Sulfamethoxazole w/Trimethoprim [From Bactrim] Allergy (Unknown, Verified 16:48) Cyclobenzaprine Allergy (Verified 10/15/17 16:48) Aspirin Adverse Reaction (Verified 10/15/17 16:48) Other Feels like it [place] her stomache Causes constipation Ibuprofen Adverse Reaction (Verified 10/15/17 16:48) Other Causes constipation Home Medications: Ambulatory Orders Multiple Vitamin [Multi-Vitamin] 1 tab PO DAILY 03/16/14 Raloxifene HCl [Evista] 60 mg PO DAILY 03/16/14 Valsartan [Diovan] 160 mg PO DAILY 03/16/14 Rivaroxaban [Xarelto] 20 mg PO DAILY 10/28/16 Losartan Potassium 50 mg PO DAILY 10/15/17 Meclizine HCl [Antivert] 12.5 mg PO TID #15 tab 10/15/17 Review of Systems - Review of Systems Constitutional: States: malaise EENTM: States: no symptoms reported Respiratory: States: no symptoms reported Cardiology: States: no symptoms reported Gastrointestinal/Abdominal: States: no symptoms reported Genitourinary: States: no symptoms reported Musculoskeletal: States: no symptoms reported Skin: States: no symptoms reported Neurological: States: headache, other - VERTIGO Endocrine: States: no symptoms reported Hematologic/Lymphatic: States: no symptoms reported Past Medical History (General) - Patient Medical History Hx Seizures: No Hx Stroke: No Hx Dementia: No Hx Asthma: No Hx of COPD: No Hx Cardiac Disorders: Yes Hx Congestive Heart Failure: No Hx Pacemaker: No Hx Hypertension: Yes Hx Thyroid Disease: No Hx Diabetes: No Hx Gastroesophageal Reflux: Yes Hx Renal Disease: No Hx Cancer: Yes - cervical prior to removal; 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 Hx of HIV: No Hx Hepatitis C: No Hx MRSA: No Surgical History: cholecystectomy, colectomy - Vaccination History Hx Tetanus, Diphtheria Vaccination: Yes - 2011 Hx Influenza Vaccination: Yes - 2016 Hx Pneumococcal Vaccination: Yes - Social History Hx Tobacco Use: No Hx Chewing Tobacco Use: No Hx Alcohol Use: No Hx Substance Use: No Hx Substance Use Treatment: No Hx Depression: No Hx Physical Abuse: No Hx Emotional Abuse: No Hx Suspected Abuse: No - Female History Patient : No Family Medical History - Family History Brother Family History: No Known Living Status: Hx Family Asthma: No Hx Family Congestive Heart Failure: No Hx Family Hypertension: No Hx Family Stroke: No Hx Cardiac Disease: Yes Hx Family Diabetes: No Hx Family Cancer: No Mother Family History: No Known Living Status: Hx Family Asthma: No Hx Family Congestive Heart Failure: Yes Hx Family Hypertension: No Hx Family Stroke: No Hx Cardiac Disease: No Hx Family Diabetes: No Hx Family Cancer: No Physical Exam - Physical Exam General Appearance: Alert, Well Developed, Well Groomed, Well Hydrated, Well Nourished Eye Exam: bilateral normal Ears, Nose, Throat: hearing grossly normal, normal ENT inspection, normal pharynx Neck: non-tender, full range of motion, supple, normal inspection Respiratory: chest non-tender, lungs clear, normal breath sounds, no respiratory distress, no accessory muscle use Cardiovascular/Chest: normal peripheral pulses, regular rate, rhythm, no edema, no gallop, no JVD Gastrointestinal/Abdominal: normal bowel sounds, non tender Rectal Exam: deferred Back Exam: normal inspection Extremity: normal range of motion Neurologic: hr internship II-XII nml as tested, no motor/sensory deficits, alert, normal mood/affect, oriented x 3, abnormal cerebellar tests, abnormal hr internship II-XII Skin Exam: normal color Lymphatic: no adenopathy Progress - Results/Orders Results/Orders: FEELS MUCH BETTER. LAB REVEALS A HB OF 13.5. IMAGINF HAS NO ACUTE INTRACRANIAL PROCESS NEGATIVE TILT REST OF THE LAB IS NORMAL. Departure - Departure Clinical Impression: Vertigo Time of Disposition: 18:21 Disposition: Discharge to Home or Self Care Condition: Good Departure Forms: ED Discharge - Pt. Copy, Patient Portal Self Enrollment Instructions: DI for Headache, Vertigo (a Type of Dizziness) Referrals: Farhad Del Rio MD [Primary Care Provider] - 1-2 Weeks Prescriptions: Meclizine HCl [Antivert] 12.5 mg PO TID #15 tab Home Medications: Ambulatory Orders Multiple Vitamin [Multi-Vitamin] 1 tab PO DAILY 03/16/14 Raloxifene HCl [Evista] 60 mg PO DAILY 03/16/14 Valsartan [Diovan] 160 mg PO DAILY 03/16/14 Rivaroxaban [Xarelto] 20 mg PO DAILY 10/28/16 Losartan Potassium 50 mg PO DAILY 10/15/17 Meclizine HCl [Antivert] 12.5 mg PO TID #15 tab 10/15/17
[2017-10-15 17:01] VITALS: TEMP 99.3; O2SAT 97
[2017-10-15 17:47] VITALS: BP 145/76
--- NOTE | 2017-10-15 18:02 | CT ---
PROCEDURE: Head HISTORY: VERTIGO Indication: Same as above Comparison: 02/15/2016 and 05/11/2014 Technique: CT of the head was done without intravenous contrast was done in the orthogonal planes. This exam was performed according to our departmental dose-optimization program, which includes automated exposure control, adjustment of the mA and/or KV according to the patient's size and/or use of iterative reconstruction technique. FINDINGS: There is no intracranial hemorrhage, midline shift mass effect or acute focal infarct. An old lacunar infarct in the left basal ganglia is noted There is prominence of the sylvian fissures and the cortical sulci reflecting age related volume loss. There is periventricular and deep white matter low attenuation, most likely related to small vessel white matter ischemic disease. If clinical concern exists regarding an acute ischemic/vascular pathology being responsible for patient's symptomatology, an MRI of the brain is more sensitive than the current study, in ruling out such a possibility. There is good bergeron/white matter differentiation. The ventricular system is normal. The mastoid air cells are unremarkable . The paranasal sinuses are unremarkable . There is no visualization of acute fractures involving the calvarium or the skull base. IMPRESSION: There is no acute intracranial abnormality. Age related and chronic involutional changes are seen. Electronically signed by: Wilder Haynes MD 10/15/2017 6:01 PM CDT Workstation: [id number]
== END 2017-10-15 18:29 | disposition home or self-care (01) ==
LOC: ER 16:32
DX: R42 Dizziness and giddiness (principal); R51 Headache; K21.9 Gastro-esophageal reflux disease without esophagitis; I10 Essential (primary) hypertension; Z85.41 Personal history of malignant neoplasm of cervix uteri; Z85.820 Personal history of malignant melanoma of skin; Z79.899 Other long term (current) drug therapy; Z88.6 Allergy status to analgesic agent; Z88.2 Allergy status to sulfonamides; Z88.8 Allergy status to other drugs, medicaments and biological substances

== ENCOUNTER → 2017-10-16 | Outpatient (CLI) | payer MEDICARE, BC | LOC: GMATM 12:30 | PROVIDERS: ATTEND Family Medicine | DX: N39.0 Urinary tract infection, site not specified (principal); R42 Dizziness and giddiness ==

== ENCOUNTER → 2017-12-08 | Outpatient (CLI) | payer MEDICARE, BC | LOC: GMATM 16:47 | PROVIDERS: ATTEND Nurse Practitioner Family | DX: D51.3 Other dietary vitamin B12 deficiency anemia (principal) ==

== ENCOUNTER 2017-12-10 13:17 | Emergency (ER) | payer MEDICARE, BC ==
[2017-12-10 13:42] VITALS: TEMP 99
--- NOTE | 2017-12-10 15:18 | ED.PDOC ---
History of Present Illness - General Chief Complaint: General Stated Complaint: swelling to the legs and feet Time Seen by Provider: 12/10/17 13:19 Source: patient Exam Limitations: no limitations - History of Present Illness Initial Comments: the patient is a 77-year-old female presenting to the emergency room with complaint of lower extremity edema bilaterally. Exam shows really only trace edema if that. No shortness of breath. No chest pain. No palpable cords. No pain in the calves. No recent medication changes. No weight changes. No nausea vomiting or diarrhea. No urinary symptoms. There is no bruising and no petechia. Timing/Duration: unsure Severity: mild Improving Factors: nothing Worsening Factors: nothing Associated Symptoms: denies symptoms Allergies/Adverse Reactions: Allergies Sulfa Antibiotics Allergy (Severe, Verified 12/10/17 13:44) Rash Lisinopril Allergy (Mild, Verified 12/10/17 13:44) Other makes her cough Sulfamethoxazole w/Trimethoprim [From Bactrim] Allergy (Unknown, Verified 13:44) Cyclobenzaprine Allergy (Verified 12/10/17 13:44) Aspirin Adverse Reaction (Verified 12/10/17 13:44) Other Feels like it [place] her stomache Causes constipation Ibuprofen Adverse Reaction (Verified 12/10/17 13:44) Other Causes constipation Home Medications: Ambulatory Orders Multiple Vitamin [Multi-Vitamin] 1 tab PO DAILY 03/16/14 Raloxifene HCl [Evista] 60 mg PO DAILY 03/16/14 Valsartan [Diovan] 160 mg PO DAILY 03/16/14 Rivaroxaban [Xarelto] 20 mg PO DAILY 10/28/16 Losartan Potassium 50 mg PO DAILY 10/15/17 Meclizine HCl [Antivert] 12.5 mg PO TID #15 tab 10/15/17 Furosemide [Lasix] 20 mg PO DAILY PRN #10 tab 12/10/17 Review of Systems - Review of Systems Constitutional: States: no symptoms reported EENTM: States: no symptoms reported Respiratory: States: no symptoms reported Cardiology: States: edema Gastrointestinal/Abdominal: States: no symptoms reported Genitourinary: States: no symptoms reported Musculoskeletal: States: no symptoms reported Skin: States: no symptoms reported Neurological: States: no symptoms reported Endocrine: States: no symptoms reported All other Systems: No Change from Baseline Past Medical History (General) - Patient Medical History Hx Seizures: No Hx Stroke: No Hx Dementia: No Hx Asthma: No Hx of COPD: No Hx Cardiac Disorders: Yes Hx Congestive Heart Failure: No Hx Pacemaker: No Hx Hypertension: Yes Hx Thyroid Disease: No Hx Diabetes: No Hx Gastroesophageal Reflux: Yes Hx Renal Disease: No Hx Cancer: Yes - cervical prior to removal; 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 Hx of HIV: No Hx Hepatitis C: No Hx MRSA: No Surgical History: cholecystectomy, Hysterectomy - Vaccination History Hx Tetanus, Diphtheria Vaccination: No Hx Influenza Vaccination: Yes Hx Pneumococcal Vaccination: Yes - Social History Hx Tobacco Use: No Hx Chewing Tobacco Use: No Hx Alcohol Use: No Hx Substance Use: No Hx Substance Use Treatment: No Hx Depression: No Hx Physical Abuse: No Hx Emotional Abuse: No Hx Suspected Abuse: No - Female History Patient : No Family Medical History - Family History Brother Family History: No Known Living Status: Hx Family Asthma: No Hx Family Congestive Heart Failure: No Hx Family Hypertension: No Hx Family Stroke: No Hx Cardiac Disease: Yes Hx Family Diabetes: No Hx Family Cancer: No Mother Family History: No Known Living Status: Hx Family Asthma: No Hx Family Congestive Heart Failure: Yes Hx Family Hypertension: No Hx Family Stroke: No Hx Cardiac Disease: No Hx Family Diabetes: No Hx Family Cancer: No Physical Exam - Physical Exam General Appearance: Alert, Anxious, No apparent distress Eye Exam: bilateral normal Ears, Nose, Throat: hearing grossly normal, normal ENT inspection, normal pharynx Neck: full range of motion, supple Respiratory: lungs clear, normal breath sounds, no respiratory distress, no accessory muscle use Cardiovascular/Chest: normal peripheral pulses, regular rate, rhythm, no edema Peripheral Pulses: radial,right: 2+, radial,left: 2+, dorsalis pedis,right: 2+, dorsalis pedis,left: 2+, posterior tibialis,right: 2+, posterior tibialis,left: 2+ Gastrointestinal/Abdominal: non tender - obese, soft Rectal Exam: deferred Back Exam: no CVA tenderness, no vertebral tenderness Extremity: normal range of motion, non-tender, normal inspection, normal capillary refill, pedal edema - race bilaterally 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 Workup here has not revealed any particular source for that. The patient will be written for Lasix 20 mg to be taken only as needed on a daily to every other day basis if swelling is occurring. I do want her to follow up with her primary care doctor next week. ER warnings were given. First dose was given here. - Results/Orders Results/Orders: Laboratory Results - last 24 hr 12/10/17 12/10/17 12/10/17 14:10 14:10 14:19 WBC 4.4 L RBC 4.60 Hgb 12.9 Hct 39.3 MCV 85.5 MCH 28.0 MCHC 32.7 L RDW 16.5 H Plt Count 177 MPV 7.4 Absolute Neuts (auto) 2.50 Absolute Lymphs (auto) 1.20 Absolute Monos (auto) 0.50 Absolute Eos (auto) 0.20 Absolute Basos (auto) 0.10 Neutrophils % 55.9 Lymphocytes % 27.3 Monocytes % 10.3 H Eosinophils % 5.2 H Basophils % 1.3 Sodium 138 Potassium 4.1 Chloride 103 Carbon Dioxide 28 Anion Gap 11.1 L BUN 17 Creatinine 0.66 BUN/Creatinine Ratio 25.8 H Random Glucose 108 H Serum Osmolality 277.8 Calcium 8.7 Total Bilirubin 0.5 AST 30 ALT 19 Alkaline Phosphatase 38 L Creatine Kinase 64 CK-MB (CK-2) 2.8 CK-MB (CK-2) % Not Reportable Troponin I < 0.02 B-Natriuretic Peptide 14.6 Serum Total Protein 6.2 L Albumin 3.2 Globulin 3.0 Albumin/Globulin Ratio 1.1 TSH 2.52 Urine Color Yellow Urine Appearance Clear Urine pH 7.0 Ur Specific [place] 1.015 Urine Protein Negative Urine Glucose (UA) Negative Urine Ketones Negative Urine Blood Negative Urine Nitrite Negative Urine Bilirubin Negative Urine Urobilinogen 0.2 Ur Leukocyte Esterase Trace H Urine RBC 0 Urine WBC 0 Ur Epithelial Cells 0 Urine Bacteria 0 Departure - Departure Clinical Impression: Peripheral edema Disposition: Discharge to Home or Self Care Condition: Fair Departure Forms: ED Discharge - Pt. Copy, Patient Portal Self Enrollment Instructions: Dependent Edema (DC) Diet: low salt diet Activity: increase activity as tolerated Referrals: Farhad Del Rio MD [Primary Care Provider] - 1-5 Days Prescriptions: Furosemide [Lasix] 20 mg PO DAILY PRN #10 tab PRN Reason: Hypertension Home Medications: Ambulatory Orders Multiple Vitamin [Multi-Vitamin] 1 tab PO DAILY 03/16/14 Raloxifene HCl [Evista] 60 mg PO DAILY 03/16/14 Valsartan [Diovan] 160 mg PO DAILY 03/16/14 Rivaroxaban [Xarelto] 20 mg PO DAILY 10/28/16 Losartan Potassium 50 mg PO DAILY 10/15/17 Meclizine HCl [Antivert] 12.5 mg PO TID #15 tab 10/15/17 Furosemide [Lasix] 20 mg PO DAILY PRN #10 tab 12/10/17 Additional Instructions: the patient is a 77-year-old female presenting to the emergency room secondary to new mild edema to bilateral lower extremities. Workup here has not revealed any particular source for that. The patient will be written for Lasix 20 mg to be taken only as needed on a daily to every other day basis if swelling is occurring. I do want her to follow up with her primary care doctor next week. ER warnings were given. First dose was given here.
[2017-12-10] MEDS ORDERED: FUROSEMIDE 40 MG TAB PO ONE (15:19)
[2017-12-10 15:32] VITALS: BP 152/77; O2SAT 93
== END 2017-12-10 15:35 | disposition home or self-care (01) ==
LOC: ER 13:17
DX: R60.0 Localized edema (principal); K21.9 Gastro-esophageal reflux disease without esophagitis; I51.9 Heart disease, unspecified; I10 Essential (primary) hypertension; Z85.820 Personal history of malignant melanoma of skin; Z85.41 Personal history of malignant neoplasm of cervix uteri; Z79.899 Other long term (current) drug therapy; Z88.2 Allergy status to sulfonamides; Z88.6 Allergy status to analgesic agent; Z88.8 Allergy status to other drugs, medicaments and biological substances

== ENCOUNTER → 2017-12-15 | Outpatient (CLI) | payer MEDICARE, BC | LOC: GMAM 14:53 | PROVIDERS: ATTEND Family Medicine | DX: D51.3 Other dietary vitamin B12 deficiency anemia (principal); E55.9 Vitamin D deficiency, unspecified ==

== ENCOUNTER 2018-03-01 08:17 | Emergency (ER) | payer MEDICARE, BC ==
--- NOTE | 2018-03-01 09:28 | RAD ---
EXAM DESCRIPTION: Chest,2 Views CLINICAL HISTORY: cough COMPARISON: Chest radiograph dated October 28, 2016 and April 12, 2016 TECHNIQUE: PA and lateral views of the chest FINDINGS: Cardiomediastinal silhouette and pulmonary vascularity are within normal limits. Redemonstration of calcified pulmonary nodule in the left upper lobe and calcified lymph nodes in the left hilum, compatible with chronic calcified granulomas. Lungs show no confluent infiltrates. Bilateral costophrenic angles are sharp. No pneumothorax. Degenerative changes of the thoracic spine. IMPRESSION: 1. No acute cardiopulmonary process. 2. Chronic findings as above. Electronically signed by: Alexander Ledesma MD 03/01/2018 9:27 AM [employer]
--- NOTE | 2018-03-01 09:32 | ED.PDOC ---
History of Present Illness - General Chief Complaint: Respiratory Problem Stated Complaint: shortness of breath Time Seen by Provider: 03/01/18 09:22 Source: patient Exam Limitations: no limitations - History of Present Illness Initial Comments: Patient presents with cough since yesterday. It is productive of white sputum. No fever. + sore throat. Denies history of emphysema or cardiac disease . Her has had similar symptoms. No other complaints. Timing/Duration: 24 hours Severity: mild Improving Factors: nothing Worsening Factors: nothing Associated Symptoms: other - as in HPI Allergies/Adverse Reactions: Allergies Sulfa Antibiotics Allergy (Severe, Verified 12/10/17 13:44) Rash Lisinopril Allergy (Mild, Verified 12/10/17 13:44) Other makes her cough Sulfamethoxazole w/Trimethoprim [From Bactrim] Allergy (Unknown, Verified 12/10/17 13:44) Cyclobenzaprine Allergy (Verified 12/10/17 13:44) Aspirin Adverse Reaction (Verified 12/10/17 13:44) Other Feels like it [place] her stomache Causes constipation Ibuprofen Adverse Reaction (Verified 12/10/17 13:44) Other Causes constipation Home Medications: Ambulatory Orders Multiple Vitamin [Multi-Vitamin] 1 tab PO DAILY 03/16/14 Raloxifene HCl [Evista] 60 mg PO DAILY 03/16/14 Valsartan [Diovan] 160 mg PO DAILY 03/16/14 Rivaroxaban [Xarelto] 20 mg PO DAILY 10/28/16 Losartan Potassium 50 mg PO DAILY 10/15/17 Furosemide [Lasix] 20 mg PO DAILY PRN #10 tab 12/10/17 Benzonatate Perles [Tessalon Perles] 100 mg PO Q8HRS #20 cap 03/01/18 Review of Systems - Review of Systems Constitutional: States: no symptoms reported EENTM: States: see HPI Respiratory: States: see HPI Cardiology: States: no symptoms reported Gastrointestinal/Abdominal: States: no symptoms reported Genitourinary: States: no symptoms reported Musculoskeletal: States: no symptoms reported Skin: States: no symptoms reported Neurological: States: no symptoms reported Endocrine: States: no symptoms reported Past Medical History (General) - Patient Medical History Hx Seizures: No Hx Stroke: No Hx Dementia: No Hx Asthma: No Hx of COPD: No Hx Cardiac Disorders: Yes Hx Congestive Heart Failure: No Hx Pacemaker: No Hx Hypertension: Yes Hx Thyroid Disease: No Hx Diabetes: No Hx Gastroesophageal Reflux: Yes Hx Renal Disease: No Hx Cancer: Yes - cervical prior to removal; 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 Hx of HIV: No Hx Hepatitis C: No Hx MRSA: No Surgical History: appendectomy, cholecystectomy, colectomy, Hysterectomy, other - Vaccination History Hx Tetanus, Diphtheria Vaccination: No Hx Influenza Vaccination: Yes Hx Pneumococcal Vaccination: Yes - Social History Hx Tobacco Use: No Hx Chewing Tobacco Use: No Hx Alcohol Use: No Hx Substance Use: No Hx Substance Use Treatment: No Hx Depression: No Hx Physical Abuse: No Hx Emotional Abuse: No Hx Suspected Abuse: No - Female History Patient : No Family Medical History - Family History Brother Family History: No Known Living Status: Hx Family Asthma: No Hx Family Congestive Heart Failure: No Hx Family Hypertension: No Hx Family Stroke: No Hx Cardiac Disease: Yes Hx Family Diabetes: No Hx Family Cancer: No Mother Family History: No Known Living Status: Hx Family Asthma: No Hx Family Congestive Heart Failure: Yes Hx Family Hypertension: No Hx Family Stroke: No Hx Cardiac Disease: No Hx Family Diabetes: No Hx Family Cancer: No Physical Exam - Physical Exam General Appearance: Alert Eye Exam: bilateral normal Ears, Nose, Throat: normal ENT inspection Neck: non-tender, lymphadenopathy (R) - right anterior cervical LAD. NTTP mobile, fluctuant, rubbery in consistency, less than 1 cm Respiratory: chest non-tender, lungs clear, normal breath sounds Cardiovascular/Chest: normal peripheral pulses, regular rate, rhythm, no edema Gastrointestinal/Abdominal: normal bowel sounds, non tender, soft Back Exam: no CVA tenderness Extremity: normal range of motion, non-tender, normal inspection, no pedal edema Neurologic: no motor/sensory deficits, alert, normal mood/affect, oriented x 3 Progress - Progress Progress: 03/01/18 10:47 CXR showed no acute disease. Laboratory Tests 03/01/18 03/01/18 03/01/18 08:34 08:35 08:35 WBC 6.9 RBC 4.72 Hgb 13.0 Hct 40.0 MCV 84.6 MCH 27.6 MCHC 32.6 L RDW 15.7 H Plt Count 173 MPV 7.7 Absolute Neuts (auto) 4.90 Absolute Lymphs (auto) 1.20 Absolute Monos (auto) 0.40 Absolute Eos (auto) 0.20 Absolute Basos (auto) 0.10 Neutrophils % 71.8 Lymphocytes % 17.8 L Monocytes % 6.0 Eosinophils % 3.4 Basophils % 1.0 Sodium 136 Potassium 3.9 Chloride 103 Carbon Dioxide 25 Anion Gap 11.9 L BUN 16 Creatinine 0.55 L BUN/Creatinine Ratio 29.1 H Random Glucose 96 Serum Osmolality 273.0 L Calcium 8.5 Total Bilirubin 0.4 AST 28 ALT 21 Alkaline Phosphatase 42 Creatine Kinase 45 CK-MB (CK-2) 2.2 CK-MB (CK-2) % Not Reportable Troponin I < 0.02 B-Natriuretic Peptide 26.5 Serum Total Protein 6.3 L Albumin 3.3 Globulin 3.0 Albumin/Globulin Ratio 1.1 Group A Strep Rapid 03/01/18 09:37 WBC RBC Hgb Hct MCV MCH MCHC RDW Plt Count MPV Absolute Neuts (auto) Absolute Lymphs (auto) Absolute Monos (auto) Absolute Eos (auto) Absolute Basos (auto) Neutrophils % Lymphocytes % Monocytes % Eosinophils % Basophils % Sodium Potassium Chloride Carbon Dioxide Anion Gap BUN Creatinine BUN/Creatinine Ratio Random Glucose Serum Osmolality Calcium Total Bilirubin AST ALT Alkaline Phosphatase Creatine Kinase CK-MB (CK-2) CK-MB (CK-2) % Troponin I B-Natriuretic Peptide Serum Total Protein Albumin Globulin Albumin/Globulin Ratio Group A Strep Rapid Negative Rapid strep negative. Labs unremarkable. Patient given benzonatate in the E.D. and RX for it. Likely cough from viral URI. Care instructions given. E.R. warnings given. Questions were elicited and answered. Patient voiced understanding and agreement with the plan. Care instructions given. E.R. warnings given. Questions were elicited and answered. Patient voiced understanding and agreement with the plan. Departure - Departure Clinical Impression: Upper respiratory infection Disposition: Discharge to Home or Self Care Condition: Good Departure Forms: ED Discharge - Pt. Copy, Patient Portal Self Enrollment Instructions: Viral Upper Respiratory Infection, Adult (DC) Activity: increase activity as tolerated Referrals: Farhad Del Rio MD [Primary Care Provider] - 1-2 Weeks Prescriptions: Benzonatate Perles [Tessalon Perles] 100 mg PO Q8HRS #20 cap Home Medications: Ambulatory Orders Multiple Vitamin [Multi-Vitamin] 1 tab PO DAILY 03/16/14 Raloxifene HCl [Evista] 60 mg PO DAILY 03/16/14 Valsartan [Diovan] 160 mg PO DAILY 03/16/14 Rivaroxaban [Xarelto] 20 mg PO DAILY 10/28/16 Losartan Potassium 50 mg PO DAILY 10/15/17 Furosemide [Lasix] 20 mg PO DAILY PRN #10 tab 12/10/17 Benzonatate Perles [Tessalon Perles] 100 mg PO Q8HRS #20 cap 03/01/18 Additional Instructions: Take the prescription as directed. Also use Mucinex as directed. Return to your regular doctor for a cough that lasts more than 10 days. Return to your regular doctor or to the E.R. for a temperature greater than 100.3.
[2018-03-01] MEDS ORDERED: BENZONATATE PERLES 100 MG CAP PO ONE (10:36)
[2018-03-01 11:05] VITALS: BP 151/73; TEMP 98.7; O2SAT 95
== END 2018-03-01 11:04 | disposition home or self-care (01) ==
LOC: ER 08:17
DX: J06.9 Acute upper respiratory infection, unspecified (principal); I10 Essential (primary) hypertension; K21.9 Gastro-esophageal reflux disease without esophagitis; Z79.899 Other long term (current) drug therapy; Z85.41 Personal history of malignant neoplasm of cervix uteri; Z85.820 Personal history of malignant melanoma of skin

== ENCOUNTER 2018-03-07 11:59 | Emergency (ER) | payer MEDICARE, BC ==
--- NOTE | 2018-03-07 12:09 | ED.PDOC ---
History of Present Illness - General Time Seen by Provider: 03/07/18 12:02 Source: patient, RN notes reviewed Exam Limitations: no limitations Additional Information: 77 YEAR OLD HERE FOR EVALUATION OF COUGH SHAKES COUGH IS NOT PRODUCTIVE SHE WAS SEEN HERE LAST WEEK GIVEN BENZOATE SINCE THEN SHE HAS BEEN HAVING DIARRHOEA NO ASSOCIATED BLOOD OR MUCOUS IN STOOLS SHE HAS NO ABDOMINAL PAIN NO HISTORY OF COPD OR ASTHMA OR CHF - History of Present Illness Timing/Duration: 1 week Severity: moderate Improving Factors: nothing Worsening Factors: nothing Associated Symptoms: cough, weakness Allergies/Adverse Reactions: Allergies Sulfa Antibiotics Allergy (Severe, Verified 12/10/17 13:44) Rash Lisinopril Allergy (Mild, Verified 12/10/17 13:44) Other makes her cough Sulfamethoxazole w/Trimethoprim [From Bactrim] Allergy (Unknown, Verified 12/10/17 13:44) Cyclobenzaprine Allergy (Verified 12/10/17 13:44) Aspirin Adverse Reaction (Verified 12/10/17 13:44) Other Feels like it [place] her stomache Causes constipation Ibuprofen Adverse Reaction (Verified 12/10/17 13:44) Other Causes constipation Home Medications: Ambulatory Orders Multiple Vitamin [Multi-Vitamin] 1 tab PO DAILY 03/16/14 Raloxifene HCl [Evista] 60 mg PO DAILY 03/16/14 Rivaroxaban [Xarelto] 20 mg PO DAILY 10/28/16 Losartan Potassium 50 mg PO DAILY 10/15/17 Benzonatate Perles [Tessalon Perles] 100 mg PO Q8HRS #20 cap 03/01/18 Azithromycin Tab [Zithromax Tab] 250 mg PO QDPC #1 pack 03/07/18 Furosemide [Lasix] 20 mg PO DAILY PRN 03/07/18 Potassium Chloride 03/07/18 Review of Systems - Review of Systems Constitutional: States: no symptoms reported EENTM: States: no symptoms reported Respiratory: States: cough Cardiology: States: no symptoms reported Gastrointestinal/Abdominal: States: diarrhea Genitourinary: States: no symptoms reported Musculoskeletal: States: no symptoms reported Skin: States: no symptoms reported Neurological: States: no symptoms reported Endocrine: States: no symptoms reported Past Medical History (General) - Patient Medical History Hx Seizures: No Hx Stroke: No Hx Dementia: No Hx Asthma: No Hx of COPD: No Hx Cardiac Disorders: Yes Hx Congestive Heart Failure: No Hx Pacemaker: No Hx Hypertension: Yes Hx Thyroid Disease: No Hx Diabetes: No Hx Gastroesophageal Reflux: Yes Hx Renal Disease: No Hx Cancer: Yes - cervical prior to removal; 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 Hx of HIV: No Hx Hepatitis C: No Hx MRSA: No - Vaccination History Hx Tetanus, Diphtheria Vaccination: No Hx Influenza Vaccination: Yes Hx Pneumococcal Vaccination: Yes - Social History Hx Tobacco Use: No Hx Chewing Tobacco Use: No Hx Alcohol Use: No Hx Substance Use: No Hx Substance Use Treatment: No Hx Depression: No Hx Physical Abuse: No Hx Emotional Abuse: No Hx Suspected Abuse: No - Female History Patient : No Family Medical History - Family History Brother Family History: No Known Living Status: Hx Family Asthma: No Hx Family Congestive Heart Failure: No Hx Family Hypertension: No Hx Family Stroke: No Hx Cardiac Disease: Yes Hx Family Diabetes: No Hx Family Cancer: No Mother Family History: No Known Living Status: Hx Family Asthma: No Hx Family Congestive Heart Failure: Yes Hx Family Hypertension: No Hx Family Stroke: No Hx Cardiac Disease: No Hx Family Diabetes: No Hx Family Cancer: No Physical Exam - Physical Exam General Appearance: Alert, Anxious, Comfortable Eye Exam: bilateral normal Ears, Nose, Throat: hearing grossly normal, normal ENT inspection, normal pharynx Neck: non-tender, full range of motion, supple Respiratory: chest non-tender, lungs clear, normal breath sounds, no respiratory distress, no accessory muscle use, respiratory distress Cardiovascular/Chest: normal peripheral pulses, regular rate, rhythm, no edema, no gallop, no JVD, no murmur Peripheral Pulses: radial,right: 2+, radial,left: 2+, femoral,right: 2+, femoral,left: 2+ Gastrointestinal/Abdominal: normal bowel sounds, non tender, soft, no organomegaly 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, no motor/sensory deficits, alert, normal mood/affect, oriented x 3 Skin Exam: normal color, warm/dry Departure - Departure Clinical Impression: Bronchitis, Upper respiratory infection Time of Disposition: 13:08 Disposition: Discharge to Home or Self Care Condition: Good Diet: resume usual diet Referrals: Farhad Del Rio MD [Primary Care Provider] - 1-2 Weeks Prescriptions: Azithromycin Tab [Zithromax Tab] 250 mg PO QDPC #1 pack Home Medications: Ambulatory Orders Multiple Vitamin [Multi-Vitamin] 1 tab PO DAILY 03/16/14 Raloxifene HCl [Evista] 60 mg PO DAILY 03/16/14 Rivaroxaban [Xarelto] 20 mg PO DAILY 10/28/16 Losartan Potassium 50 mg PO DAILY 10/15/17 Benzonatate Perles [Tessalon Perles] 100 mg PO Q8HRS #20 cap 03/01/18 Azithromycin Tab [Zithromax Tab] 250 mg PO QDPC #1 pack 03/07/18 Furosemide [Lasix] 20 mg PO DAILY PRN 03/07/18 Potassium Chloride 03/07/18
[2018-03-07 12:20] VITALS: TEMP 99
--- NOTE | 2018-03-07 12:26 | RAD ---
PROCEDURE: XR Chest, 1 View CLINICAL INDICATION: The patient is 77 years old and is Female; R/O PNEUMONIA TECHNIQUE: Frontal view of the chest. COMPARISON: Comparison is made to the prior study dated six days earlier. FINDINGS: LUNGS: The lungs are clear and free of focal consolidation. Redemonstrated benign LEFT upper lobe granuloma. Lungs are hyperinflated. Pulmonary vascularity is normal. PLEURAL SPACE: There is NO pneumothorax. There are no pleural effusions noted. HEART: The heart size is normal. MEDIASTINUM: The mediastinal contour is unremarkable. BONES/JOINTS: There are degenerative changes of the spine identified. No acute abnormality. LYMPH NODES: Stable LEFT hilar calcified lymph nodes. IMPRESSION: The lungs are clear and free of focal consolidation. Electronically signed by: Raghav Lomas MD 03/07/2018 12:25 PM [employer] STOREK[employer]PER
[2018-03-07] MEDS ORDERED: DEXAMETHASONE INJ 10 MG/ML VIAL IV ONE (13:00)
[2018-03-07] MEDS ORDERED: DEXAMETHASONE INJ 10 MG/ML VIAL IM ONE (13:10)
[2018-03-07 13:28] VITALS: BP 150/73; O2SAT 97
== END 2018-03-07 13:27 | disposition home or self-care (01) ==
LOC: ER 11:59
DX: J06.9 Acute upper respiratory infection, unspecified (principal); J40 Bronchitis, not specified as acute or chronic; I51.9 Heart disease, unspecified; I10 Essential (primary) hypertension; K21.9 Gastro-esophageal reflux disease without esophagitis; Z85.41 Personal history of malignant neoplasm of cervix uteri; Z85.820 Personal history of malignant melanoma of skin; Z79.899 Other long term (current) drug therapy; Z88.2 Allergy status to sulfonamides; Z88.8 Allergy status to other drugs, medicaments and biological substances; Z88.6 Allergy status to analgesic agent
CPT/HCPCS: 71045; 80053; 85025; J1100

== ENCOUNTER → 2018-07-27 | Outpatient (CLI) | payer MEDICARE, BC | LOC: GMAM 13:14 | PROVIDERS: ATTEND Family Medicine | DX: D51.3 Other dietary vitamin B12 deficiency anemia (principal); E55.9 Vitamin D deficiency, unspecified; I10 Essential (primary) hypertension ==

== ENCOUNTER → 2018-08-24 | Outpatient (CLI) | payer MEDICARE, BC ==
--- NOTE | 2018-08-24 14:16 | MRI ---
Study: MRI of the Left Shoulder. Indication: PAIN IN LEFT SHOULDER Technique: Multiplanar, multi sequence MRI of the left shoulder was obtained without intravenous contrast. Comparison: None. Findings: Moderate AC joint osteoarthritis. Type II acromion with moderate lateral downsloping. Small-volume subacromial/subdeltoid bursal fluid. Full-thickness, fullwidth supraspinatus tendon tearing with high-grade articular tearing anterior half infraspinatus tendon. Tear defect measures 33 mm AP by up to 33 mm transverse. Torn articular fibers retracted to the level of the AC joint line. Subscapularis tendinosis with high-grade articular tearing superiorly. Teres minor tendon intact. Mild to moderate atrophy and grade 2 fatty infiltration rotator cuff musculature. Long head biceps tendinosis and longitudinal fissuring without transection. Circumferential labral truncation/degeneration. Mild glenohumeral joint osteoarthritis with small joint effusion. No acute fracture. Impression: Full-thickness, fullwidth retracted supraspinatus tendon tearing with high-grade articular tearing anterior infraspinatus tendon. Subscapularis tendinosis with high-grade articular tearing superiorly. Mild to moderate atrophy and grade 2 fatty infiltration rotator cuff musculature. Long head biceps tendinosis and longitudinal fissuring. Circumferential labral truncation and degeneration. Mild glenohumeral joint osteoarthritis with small joint effusion. Moderate AC joint osteoarthritis. Electronically signed by: Addi Szymanski MD 08/24/2018 2:14 PM CDT
--- NOTE | 2018-08-25 09:49 | MRI ---
EXAM DESCRIPTION: Cervical Spine: MRI. CLINICAL HISTORY: 78 years Female PAIN IN LEFT SHOULDER COMPARISON: Cervical radiographs April 2016. TECHNIQUE: Multiplanar, high-field MRI, multiple sequences, non-contrast Cervical spine. FINDINGS: C4-5: Desiccation of the disc and posterior disc space loss with minimal endplate concavities anterior ridging and posterior bulging but not abutting the cord. Facets are negative. Bilateral neural foramina are patent. Mild narrowing of the canal. C5-C6: Disc desiccation and minimal posterior disc space loss. Bilateral uncinate spurs. Bilateral facets are unremarkable. Minimal thickening of the posterior ligaments. Canal patent. Mild bilateral neural foraminal narrowing. C6-C7: Minimal disc desiccation. Disc space preserved. No bulging. Minimal thickening of the posterior ligaments. Canal and neural foramina are patent. C7-T1: Normal signal in the disc with disc space preserved. Facets are negative. Canal and neural foramina are patent. Perineural Cyst in the left neural foramen. Circumscribed hyperintense T1 and T2 signal in the right C7 vertebral body and pedicle, consistent with a hemangioma. Normal signal in the remaining discs with no bulging. Disc spaces preserved. Canal and neural foramina are patent. Facet joints are negative. Spinal alignment unremarkable. No cord compression or cord edema. Atlantoaxial joint negative.. Base of the cerebellar tonsils is at the level of the foramen magnum. Paravertebral soft tissues negative.. Vertebral bodies are not compressed at any level. Otherwise normal marrow signal in the remaining vertebral bodies and the posterior elements. IMPRESSION: 1. Minimal disc desiccation at several levels. No significant disc bulging or herniation. No significant facet hypertrophic arthrosis or flavum ligament hypertrophy. No canal or neural foraminal stenosis. 2. Perineural cyst in the left neural foramen at C7-T1 may be abutting the exiting left C8 nerve. 3. Posterior midline C4-5 disc bulge but not abutting the cord. Electronically signed by: Olaf Blanco MD 08/25/2018 9:46 AM CDT
== END ==
LOC: MRI 11:00
PROVIDERS: ATTEND Family Medicine
DX: S46.812A Strain of other muscles, fascia and tendons at shoulder and upper arm level, left arm, initial encounter (principal); M62.512 Muscle wasting and atrophy, not elsewhere classified, left shoulder; M19.012 Primary osteoarthritis, left shoulder; M75.22 Bicipital tendinitis, left shoulder; M50.30 Other cervical disc degeneration, unspecified cervical region; M50.921 Unspecified cervical disc disorder at C4-C5 level; M71.38 Other bursal cyst, other site

== ENCOUNTER → 2018-09-02 | Outpatient (CLI) | payer MEDICARE, BC ==
--- NOTE | 2018-09-02 10:07 | CT ---
PROVIDED CLINICAL HISTORY/REASON FOR EXAM: PULMONARY NODULE STUDY TYPE/TECHNIQUE: CT CHEST WITH IV CONTRAST This exam was performed according to our departmental dose-optimization program, which includes automated exposure control, adjustment of the mA and/or kV according to patient size and/or use of iterative reconstruction technique. COMPARISON: No chest CT comparison FINDINGS: Left thyroid lobe nodule measuring 1.3 cm. No follow-up indicated. No axillary adenopathy. Atherosclerotic plaque in the thoracic aorta. No pericardial effusion. Steatosis. Small hiatal hernia. Otherwise the upper abdomen is unremarkable. No mediastinal adenopathy. The pulmonary arteries are grossly unremarkable. No pneumothorax. Calcified left upper lobe granuloma. No pleural effusion. Sub-6 mm left lower lobe pulmonary nodule axial image 36. There are other small scattered sub-6 mm solid noncalcified pulmonary nodules. Small scattered calcified granulomas are present as well. Calcified pulmonary nodules are benign. No acute or suspicious osseous abnormality. Scattered degenerative changes present. IMPRESSION: Multiple sub-6 mm solid noncalcified pulmonary nodules. According to the most recent Fleischner Society Pulmonary Nodule Guidelines ( DOI: http://dx.doi.org/10.1148/radiol.9435321685 ), in the absence of risk factors, for multiple solid nodules measuring smaller than 6 mm, no CT follow-up is required. If the patient is considered high-risk for bronchogenic carcinoma, 1-year CT follow-up or other follow-up intervals according to size and risk. *High-risk features include: history of smoking, exposure to other carcinogens, emphysema, fibrosis, upper lobe location, family history of lung cancer. Electronically signed by: Garrison Rhodes MD 09/02/2018 10:06 AM CDT
== END ==
LOC: CT 08:49
PROVIDERS: ATTEND Family Medicine
DX: R91.8 Other nonspecific abnormal finding of lung field (principal)

== ENCOUNTER → 2018-12-24 | Outpatient (CLI) | payer MEDICARE ==
--- NOTE | 2018-12-28 17:49 | MAM ---
EXAM DESCRIPTION: 3D Screening BILATERAL : Digital Mammography. CLINICAL HISTORY: 78 years Female SCREENING history not available.. Lifetime risk of developing breast cancer (Tyrer-Cuzick model)(%): Not calculated COMPARISON: 2-D digital screening bilateral mammography 09 May 2015.. No prior reports available. TECHNIQUE: Bilateral CC and MLO projection full-field images, digital tomosynthesis mammographic technique. Bilateral digital 2-D full-field MLO images. CAD not available for tomosynthesis or 2-D images. FINDINGS: The breast parenchymal density pattern is: Almost entirely fatty. No skin thickening or nipple retraction. Mole marker lateral left breast. Bilateral solitary microcalcifications. Bilateral axillary lymph nodes.No new focal, stellate mass or density, focal asymmetry , and no suspicious microcalcifications bilaterally. Stable mammograms compared to prior study. Taking into account, differences in mammographic technique. IMPRESSION: Benign exam. BIRAD CATEGORY: 2 BENIGN FINDINGS. RECOMMENDATIONS: FOLLOW UP: Routine digital bilateral mammographic screening, one year interval from December 2018. Written communication explaining the IMPRESSION and follow-up, will be mailed to the patient and referring health care provider. According to the [employer], yearly mammograms are recommended starting at age 40 and continuing as long as a woman is in good health. Any breast change noted on a breast self-exam should be reported promptly to the patient's healthcare provider. Breast MRI is recommended for women with an approximately 20-25% or greater lifetime risk of breast cancer, including women with a strong family history of breast or ovarian cancer and women who have been treated for Hodgkin's disease. A negative mammographic report should not delay tissue diagnosis in patients with significant clinical history or physical findings. Extremely dense breast tissue limits the sensitivity of digital mammography. Electronically signed by: Olaf Blanco MD 12/28/2018 5:48 PM DISTRICT FIRE CHIEF
== END ==
LOC: MAMMO 10:13
PROVIDERS: ATTEND Obstetrics & Gynecology Gynecology
DX: Z12.31 Encounter for screening mammogram for malignant neoplasm of breast (principal)

== ENCOUNTER 2019-04-02 16:10 | Emergency (ER) | payer MEDICARE ==
--- NOTE | 2019-04-02 16:26 | ED.PDOC ---
History of Present Illness - General Chief Complaint: Respiratory Problem Stated Complaint: Shortness of breath Time Seen by Provider: 04/02/19 16:19 Source: RN notes reviewed, Vital Signs reviewed, family Exam Limitations: no limitations - History of Present Illness Initial Comments: This is a 78-year-old female postop day 1 after a left shoulder surgery that was performed in [place]. She states the surgery was a revision of a previous surgery for left shoulder impingement syndrome by Dr. Thornton. She states this was performed without complication, she was discharged home with a ropivacaine pump for pain control. She states that as soon as she turned the pump on on the way home yesterday, she became short of breath, has had a hoarse voice. She denies any chest pain/shortness of breath. She denies any seizure activity. She states her pain is well controlled at this time. She denies any fever or cough. She is currently taking Xarelto due to history of remote TIAs. Severity: mild Activities at Onset: rest Possible Cause: other - Possibly due to ropivacaine infusion she is receiving postoperatively Improving Factors: nothing Worsening Factors: nothing Associated Symptoms: denies symptoms Respiratory Risk Factors: no cause identified Allergies/Adverse Reactions: Allergies Sulfa Antibiotics Allergy (Severe, Verified 12/10/17 13:44) Rash Lisinopril Allergy (Mild, Verified 12/10/17 13:44) Other makes her cough Sulfamethoxazole w/Trimethoprim [From Bactrim] Allergy (Unknown, Verified 12/10/17 13:44) Cyclobenzaprine Allergy (Verified 12/10/17 13:44) Aspirin Adverse Reaction (Verified 12/10/17 13:44) Other Feels like it villa her stomache Causes constipation Ibuprofen Adverse Reaction (Verified 12/10/17 13:44) Other Causes constipation Home Medications: Ambulatory Orders Multiple Vitamin [Multi-Vitamin] 1 tab PO DAILY 03/16/14 Raloxifene HCl [Evista] 60 mg PO DAILY 03/16/14 Rivaroxaban [Xarelto] 20 mg PO DAILY 10/28/16 Losartan Potassium 50 mg PO DAILY 10/15/17 Benzonatate Perles [Tessalon Perles] 100 mg PO Q8HRS #20 cap 03/01/18 Azithromycin Tab [Zithromax Tab] 250 mg PO QDPC #1 pack 03/07/18 Furosemide [Lasix] 20 mg PO DAILY PRN 03/07/18 Potassium Chloride 03/07/18 Hydrocodone-Acetaminophen [Odd 5-325 mg] 1 - 2 tab PO Q6HR PRN #20 tab 04/02/19 Review of Systems - Review of Systems Constitutional: Denies: chills, fever EENTM: Denies: ear pain, nose congestion, throat pain Respiratory: States: short of breath, other - Hoarse voice. Denies: cough Cardiology: Denies: chest pain, edema, palpitations Gastrointestinal/Abdominal: Denies: diarrhea, nausea, vomiting Musculoskeletal: Denies: joint pain, joint swelling Skin: Denies: change in color, rash Neurological: Denies: headache, numbness, seizure, tremors, weakness All other Systems: Reviewed and Negative Past Medical History (General) - Patient Medical History Hx Seizures: No Hx Stroke: No Hx Dementia: No Hx Asthma: No Hx of COPD: No Hx Cardiac Disorders: Yes Hx Congestive Heart Failure: No Hx Pacemaker: No Hx Hypertension: Yes Hx Thyroid Disease: No Hx Diabetes: No Hx Gastroesophageal Reflux: Yes Hx Renal Disease: No Hx Cancer: Yes - cervical prior to removal; 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 Hx of HIV: No Hx Hepatitis C: No Hx MRSA: No - Vaccination History Hx Tetanus, Diphtheria Vaccination: No Hx Influenza Vaccination: Yes Hx Pneumococcal Vaccination: Yes - Social History Hx Tobacco Use: No Hx Chewing Tobacco Use: No Hx Alcohol Use: No Hx Substance Use: No Hx Substance Use Treatment: No Hx Depression: No Hx Physical Abuse: No Hx Emotional Abuse: No Hx Suspected Abuse: No - Female History Patient : No Family Medical History - Family History Brother Family History: No Known Living Status: Hx Family Asthma: No Hx Family Congestive Heart Failure: No Hx Family Hypertension: No Hx Family Stroke: No Hx Cardiac Disease: Yes Hx Family Diabetes: No Hx Family Cancer: No Mother Family History: No Known Living Status: Hx Family Asthma: No Hx Family Congestive Heart Failure: Yes Hx Family Hypertension: No Hx Family Stroke: No Hx Cardiac Disease: No Hx Family Diabetes: No Hx Family Cancer: No Physical Exam - Physical Exam General Appearance: Alert, Comfortable, No apparent distress Eyes, Ears, Nose, Throat Exam: normal ENT inspection, TMs normal, pharynx normal, other - Voice is slightly hoarse, tolerating secretions, no stridor Neck: non-tender, full range of motion, supple, normal inspection Respiratory: lungs clear, normal breath sounds, no respiratory distress Cardiovascular/Chest: regular rate, rhythm, no edema, no gallop, no JVD Gastrointestinal/Abdominal: non tender, soft Extremity: other - Left arm in sling, puncture wound to the left posterior shoulder with an old healed surgical incision to the left lateral shoulder. There is an indwelling catheter for her ropivacaine pump in place at the base of the left neck. Skin at the puncture site is clean, dry, intact. Neurologic: renderer II-XII nml as tested, alert, normal mood/affect, oriented x 3 Skin Exam: normal color, warm/dry Progress - Progress Progress: 04/02/19 15:55 Indwelling ropivacaine catheter was removed without complication. Patient tolerated well. Skin is intact, no active bleeding. 04/02/19 18:47 Recheck. Patient able to swallow, no stridor. Still has slightly hoarse voice. BP is still somewhat elevated. Certainly no seizure activity, perioral numbness, or any other signs of ropivacaine toxicity. I have a low suspicion for anaphylaxis at this time. Patient's O2 sats are in the low to mid 90s on room air, no respiratory distress. Patient feels comfortable going home. Recommended follow-up with PCP/Dr. Thornton on Thursday for recheck. Strict warnings given to return to the emergency room for worsening shortness of breat h, chest pain, fever, numbness/tingling/weakness, or any concerns - Results/Orders Results/Orders: CXR IMPRESSION: No acute cardiopulmonary abnormalities. Stable exam. Electronically signed by: Adrianna Sawyer MD 04/02/2019 5:20 PM ACCOUNTING CLERK Laboratory Tests 04/02/19 04/02/19 04/02/19 16:50 16:50 16:50 WBC 7.9 RBC 4.93 Hgb 13.9 Hct 42.4 MCV 86.0 MCH 28.2 MCHC 32.8 L RDW 15.5 H Plt Count 188 MPV 7.7 Absolute Neuts (auto) 6.10 Absolute Lymphs (auto) 1.30 Absolute Monos (auto) 0.50 Absolute Eos (auto) 0.10 Absolute Basos (auto) 0.00 Neutrophils % 76.9 Lymphocytes % 15.8 L Monocytes % 5.7 Eosinophils % 1.2 Basophils % 0.4 PT 9.9 INR 1.00 PTT (SP) 24.0 Sodium 138 Potassium 3.8 Chloride 102 Carbon Dioxide 27 Anion Gap 12.8 BUN 18 Creatinine 0.70 BUN/Creatinine Ratio 25.7 H Random Glucose 100 Serum Osmolality 277.7 Lactic Acid Calcium 9.5 Total Bilirubin 0.5 AST 25 ALT 15 Alkaline Phosphatase 43 Troponin I B-Natriuretic Peptide 74.3 Serum Total Protein 7.2 Albumin 3.9 Globulin 3.3 Albumin/Globulin Ratio 1.2 04/02/19 04/02/19 04/02/19 16:50 16:50 18:10 WBC RBC Hgb Hct MCV MCH MCHC RDW Plt Count MPV Absolute Neuts (auto) Absolute Lymphs (auto) Absolute Monos (auto) Absolute Eos (auto) Absolute Basos (auto) Neutrophils % Lymphocytes % Monocytes % Eosinophils % Basophils % PT INR PTT (SP) Sodium Potassium Chloride Carbon Dioxide Anion Gap BUN Creatinine BUN/Creatinine Ratio Random Glucose Serum Osmolality Lactic Acid 1.7 2.0 Calcium Total Bilirubin AST ALT Alkaline Phosphatase Troponin I < 0.02 B-Natriuretic Peptide Serum Total Protein Albumin Globulin Albumin/Globulin Ratio - EKG/XRAY/CT Comments: NSR, rate 62, LAD, PRWP, no ST elevation/depression XRAY: chest - I reviewed chest x-ray personally at 5:25 PM. No acute process, no infiltrate, no pneumothorax. - Additional EKG/XRAY/Consults Time Called: 17:32 - Discussed presentation with Dr. Thornton. He states she did not have surgery, he simply did an intra-articular injection and manipulation for adhesive capsulitis. She was placed on a ropivacaine pump for pain control. I discussed her symptoms, he recommends removal of the catheter and discharge home with pain medication. He will see in the office in 2 days. Departure - Departure Clinical Impression: Shortness of breath, Hoarseness of voice Disposition: Discharge to Home or Self Care Departure Forms: ED Discharge - Pt. Copy, Patient Portal Self Enrollment Instructions: Shortness of Breath (Dyspnea) (DC) Diet: resume usual diet Activity: increase activity as tolerated Referrals: Farhad Del Rio MD [Primary Care Provider] - 1-2 Days YO THORNTON [Referring] - 1-2 Days Prescriptions: Hydrocodone-Acetaminophen [Odd 5-325 mg] 1 - 2 tab PO Q6HR PRN #20 tab PRN Reason: Pain -- Moderate To Severe Home Medications: Ambulatory Orders Multiple Vitamin [Multi-Vitamin] 1 tab PO DAILY 03/16/14 Raloxifene HCl [Evista] 60 mg PO DAILY 03/16/14 Rivaroxaban [Xarelto] 20 mg PO DAILY 10/28/16 Losartan Potassium 50 mg PO DAILY 10/15/17 Benzonatate Perles [Tessalon Perles] 100 mg PO Q8HRS #20 cap 03/01/18 Azithromycin Tab [Zithromax Tab] 250 mg PO QDPC #1 pack 03/07/18 Furosemide [Lasix] 20 mg PO DAILY PRN 03/07/18 Potassium Chloride 03/07/18 Hydrocodone-Acetaminophen [Odd 5-325 mg] 1 - 2 tab PO Q6HR PRN #20 tab 04/02/19
[2019-04-02] MEDS ORDERED: IPRATROPIUM/ALBUTEROL 3 ML VIAL INH ONE (16:32)
[2019-04-02] MEDS ORDERED: SODIUM CHLORIDE 0.9% (FLUSH) 10 ML SYG IV PRN (16:32)
[2019-04-02] MEDS ORDERED: SODIUM CHLORIDE 0.9% 1000ML 1,000 ML IVS PRN (16:32)
[2019-04-02 16:36] VITALS: TEMP 98.8
--- NOTE | 2019-04-02 17:22 | RAD ---
EXAM DESCRIPTION: XR Chest, 1 View CLINICAL HISTORY: 78 years Female Shortness of breath TECHNIQUE: One view of the chest. COMPARISON: 03/07/2018 FINDINGS: Stable calcified left upper lobe pulmonary nodule. Minimal bibasilar atelectasis. The lungs are otherwise clear without focal consolidation, effusion, or pneumothorax. The cardiomediastinal silhouette and central pulmonary vasculature are normal. No acute osseous abnormalities. IMPRESSION: No acute cardiopulmonary abnormalities. Stable exam. Electronically signed by: Adrianna Sawyer MD 04/02/2019 5:20 PM POLICE SHIFT COMMANDER
[2019-04-02] MEDS ORDERED: cloNIDine HCL 0.1 MG TAB PO ONE (18:54)
[2019-04-02 19:06] VITALS: O2SAT 92
[2019-04-02 19:39] VITALS: BP 156/79
== END 2019-04-02 19:39 | disposition home or self-care (01) ==
LOC: ER 16:10
DX: R06.02 Shortness of breath (principal); R49.0 Dysphonia; I51.9 Heart disease, unspecified; I10 Essential (primary) hypertension; K21.9 Gastro-esophageal reflux disease without esophagitis; Z98.890 Other specified postprocedural states; Z79.899 Other long term (current) drug therapy; Z85.41 Personal history of malignant neoplasm of cervix uteri; Z85.820 Personal history of malignant melanoma of skin; Z86.73 Personal history of transient ischemic attack (TIA), and cerebral infarction without residual deficits; Z79.01 Long term (current) use of anticoagulants; Z88.2 Allergy status to sulfonamides; Z88.8 Allergy status to other drugs, medicaments and biological substances; Z88.6 Allergy status to analgesic agent
CPT/HCPCS: 71045; 80053; 83605; 83880; 84484; 85025; 85610; 85730; 93005; 94640; J7030; J7620

== ENCOUNTER → 2019-06-01 | Outpatient (CLI) | payer MEDICARE | LOC: GMAM 11:39 | PROVIDERS: ATTEND Family Medicine | DX: E53.8 Deficiency of other specified B group vitamins (principal); E55.9 Vitamin D deficiency, unspecified; I10 Essential (primary) hypertension ==

== ENCOUNTER 2019-06-17 21:02 | Emergency (ER) | payer MEDICARE ==
[2019-06-17 21:20] VITALS: TEMP 97.5
[2019-06-17] MEDS ORDERED: cloNIDine HCL 0.1 MG TAB PO ONE (21:21)
--- NOTE | 2019-06-17 21:35 | ED.PDOC ---
History of Present Illness - General Chief Complaint: Blood Pressure Problem Stated Complaint: started feeling dizzy about an hour ago Time Seen by Provider: 06/17/19 21:13 Source: patient, RN notes reviewed, Vital Signs reviewed Exam Limitations: no limitations - History of Present Illness Initial Comments: This is a 78-year-old female with history of hypertension presented to emergency department for elevated blood pressures and dizziness onset today. Patient states that she checked her blood pressure this afternoon and noted that it was around 170/100. She states she is taken all of her blood pressure medications and is not missed any doses recently. She states she then walked to her post office, around [address] She states she became dizzy during the walk, no LOC, no syncope. She states that she waited approximately 20 minutes when she got home and rechecked her blood pressure and it was unchanged. She denies any recent nausea/vomiting. No recent traveling. No chest pain, no unusual leg swelling. Allergies/Adverse Reactions: Allergies Sulfa Antibiotics Allergy (Severe, Verified 12/10/17 13:44) Rash Lisinopril Allergy (Mild, Verified 12/10/17 13:44) Other makes her cough Sulfamethoxazole w/Trimethoprim [From Bactrim] Allergy (Unknown, Verified 12/10/17 13:44) Acetaminophen [From Tylenol with Codeine #3] Allergy (Verified 06/17/19 22:24) Unknown Codeine [From Tylenol with Codeine #3] Allergy (Verified 06/17/19 22:24) Unknown Cyclobenzaprine Allergy (Verified 12/10/17 13:44) Tizanidine Allergy (Verified 06/17/19 22:24) Unknown Tramadol Allergy (Verified 06/17/19 22:24) Unknown Aspirin Adverse Reaction (Verified 12/10/17 13:44) Other Feels like it [place] her stomache Causes constipation Ibuprofen Adverse Reaction (Verified 12/10/17 13:44) Other Causes constipation Home Medications: Ambulatory Orders Multiple Vitamin [Multi-Vitamin] 1 tab PO DAILY 03/16/14 Raloxifene HCl [Evista] 60 mg PO DAILY 03/16/14 Rivaroxaban [Xarelto] 20 mg PO DAILY 10/28/16 Losartan Potassium 50 mg PO DAILY 10/15/17 Furosemide [Lasix] 20 mg PO DAILY PRN 03/07/18 Potassium Chloride 03/07/18 Hydrocodone-Acetaminophen [Seiling 5-325 mg] 1 - 2 tab PO Q6HR PRN #20 tab 04/02/19 Review of Systems - Review of Systems Constitutional: Denies: chills, fever EENTM: Denies: nose congestion, throat pain Respiratory: Denies: cough, orthopnea, short of breath Cardiology: States: other - Elevated BP, Dizziness. Denies: chest pain, edema, palpitations, syncope Gastrointestinal/Abdominal: Denies: diarrhea, nausea, vomiting Genitourinary: Denies: dysuria, hematuria Musculoskeletal: Denies: back pain, joint pain, joint swelling, neck pain Skin: Denies: lesions, rash Neurological: Denies: numbness, paresthesia, seizure, tingling Endocrine: States: no symptoms reported Hematologic/Lymphatic: States: no symptoms reported, easy bleeding - Patient takes Xarelto Past Medical History (General) - Patient Medical History Hx Seizures: No Hx Stroke: No Hx Dementia: No Hx Asthma: No Hx of COPD: No Hx Cardiac Disorders: Yes Hx Congestive Heart Failure: No Hx Pacemaker: No Hx Hypertension: Yes Hx Thyroid Disease: No Hx Diabetes: No Hx Gastroesophageal Reflux: Yes Hx Renal Disease: No Hx Cancer: Yes - cervical prior to removal; 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 Hx of HIV: No Hx Hepatitis C: No Hx MRSA: No Surgical History: cholecystectomy, colectomy, Hysterectomy - Vaccination History Hx Tetanus, Diphtheria Vaccination: No Hx Influenza Vaccination: Yes Hx Pneumococcal Vaccination: Yes - Social History Hx Tobacco Use: No Hx Chewing Tobacco Use: No Hx Alcohol Use: No Hx Substance Use: No Hx Substance Use Treatment: No Hx Depression: No Hx Physical Abuse: No Hx Emotional Abuse: No Hx Suspected Abuse: No - Female History Patient : No Family Medical History - Family History Brother Family History: No Known Living Status: Hx Family Asthma: No Hx Family Congestive Heart Failure: No Hx Family Hypertension: No Hx Family Stroke: No Hx Cardiac Disease: Yes Hx Family Diabetes: No Hx Family Cancer: No Mother Family History: No Known Living Status: Hx Family Asthma: No Hx Family Congestive Heart Failure: Yes Hx Family Hypertension: No Hx Family Stroke: No Hx Cardiac Disease: No Hx Family Diabetes: No Hx Family Cancer: No Physical Exam - Physical Exam General Appearance: Alert, Comfortable, No apparent distress Ears, Nose, Throat: normal ENT inspection, normal pharynx Neck: non-tender, full range of motion, supple, normal inspection Respiratory: lungs clear, normal breath sounds, no respiratory distress, no accessory muscle use Cardiovascular/Chest: normal peripheral pulses, regular rate, rhythm, no edema, no gallop, no JVD, no murmur Peripheral Pulses: radial,right: 2+, radial,left: 2+, dorsalis pedis,right: 2+, dorsalis pedis,left: 2+ Gastrointestinal/Abdominal: non tender, soft Back Exam: normal inspection, no vertebral tenderness Extremity: normal range of motion, non-tender, normal inspection, no pedal edema, no calf tenderness Neurologic: no motor/sensory deficits, alert, normal mood/affect, oriented x 3 Skin Exam: normal color, warm/dry Progress - Progress Progress: 06/17/19 22:20 Patient presenting with mild dizziness associated with elevated blood pressure readings at home and in the emergency department. She has established history of hypertension and is taking medications. Suspect accelerated hypertension today. Labs are reassuring. Blood pressure improved with p.o. clonidine. EKG without acute ischemic changes. No occasion for admission. Will defer any further changes to her BP regimen for follow-up with PCP next week. Strict warnings given to return the emergency room for worsening dizziness, chest pain, shortness of breath, changes in mental status, intractable vomiting, or other concerns.When I explained my plan to discharge the patient from the emergency department, she asked if I had discussed my plan with Dr. Del Rio. When I explained that there was no need to discuss her labs with Dr. Del Rio at this time and that it was safe for her to go home, the patient became very angry and stated "I want to go home right now". I offered to call Dr. Del Rio, but she would not respond any more of my questions. I will prepare paperwork so she can be discharged. DDX: ACcelerated HTN, HTN emergency, dehydration, renal failure, arrhythmia 06/17/19 22:28 - Results/Orders Results/Orders: EKG interpreted by me at 2132. Sinus bradycardia, rate of 59, normal axis, normal intervals, nonspecific T wave flattening isolated to aVL alone. No ST segment elevations or depressions. EXAM DESCRIPTION: Chest,1 View CLINICAL HISTORY: 78 years Female, dizziness, elevated BP COMPARISON: Chest x-ray April 02, 2019 FINDINGS: No consolidation. No pneumothorax. No significant pleural effusion. Calcified granuloma in the left midlung zone is again noted. Cardiomediastinal silhouette is unremarkable. Osseous structures are unremarkable. IMPRESSION: No acute findings. Electronically signed by: oJsé Miguel Rausch MD 06/17/2019 10:02 PM CDT 06/17/19 21:30 EKG STAT Laboratory Results - last 24 hr 06/17/19 06/17/19 06/17/19 21:48 21:48 21:48 WBC 5.9 RBC 4.92 Hgb 13.8 Hct 42.3 MCV 86.0 MCH 28.1 MCHC 32.7 L RDW 16.1 H Plt Count 201 MPV 7.4 Absolute Neuts (auto) 3.40 Absolute Lymphs (auto) 1.70 Absolute Monos (auto) 0.40 Absolute Eos (auto) 0.30 Absolute Basos (auto) 0.10 Neutrophils % 57.5 Lymphocytes % 29.5 Monocytes % 6.8 Eosinophils % 5.3 H Basophils % 0.9 Sodium 138 Potassium 3.8 Chloride 102 Carbon Dioxide 27 Anion Gap 12.8 BUN 16 Creatinine 0.69 BUN/Creatinine Ratio 23.2 H Random Glucose 100 Serum Osmolality 276.9 Calcium 9.0 Troponin I < 0.02 Departure - Departure Clinical Impression: Accelerated hypertension, Dizziness Time of Disposition: 22:23 Disposition: Discharge to Home or Self Care Condition: Good Departure Forms: ED Discharge - Pt. Copy, Patient Portal Self Enrollment Instructions: DI for High Blood Pressure Activity: increase activity as tolerated Referrals: Farhad Del Rio MD [Primary Care Provider] - 1-5 Days Home Medications: Ambulatory Orders Multiple Vitamin [Multi-Vitamin] 1 tab PO DAILY 03/16/14 Raloxifene HCl [Evista] 60 mg PO DAILY 03/16/14 Rivaroxaban [Xarelto] 20 mg PO DAILY 10/28/16 Losartan Potassium 50 mg PO DAILY 10/15/17 Furosemide [Lasix] 20 mg PO DAILY PRN 03/07/18 Potassium Chloride 03/07/18 Hydrocodone-Acetaminophen [Seiling 5-325 mg] 1 - 2 tab PO Q6HR PRN #20 tab 04/02/19 Additional Instructions: Continue your current blood pressure medication regimen at this time. Follow-up with your regular doctor in 3 to 5 days for recheck of blood pressure and to discuss any medication changes at that time. Return to emergency room i mmediately for chest pain, shortness of breath, leg swelling, loss of consciousness, worsening dizziness, or any other concerns
--- NOTE | 2019-06-17 22:03 | RAD ---
EXAM DESCRIPTION: Chest,1 View CLINICAL HISTORY: 78 years Female, dizziness, elevated BP COMPARISON: Chest x-ray April 02, 2019 FINDINGS: No consolidation. No pneumothorax. No significant pleural effusion. Calcified granuloma in the left midlung zone is again noted. Cardiomediastinal silhouette is unremarkable. Osseous structures are unremarkable. IMPRESSION: No acute findings. Electronically signed by: José Miguel Rausch MD 06/17/2019 10:02 PM CDT
[2019-06-17 22:10] VITALS: BP 146/77; O2SAT 95
== END 2019-06-17 22:37 | disposition home or self-care (01) ==
LOC: ER 21:02
DX: I10 Essential (primary) hypertension (principal); R42 Dizziness and giddiness; Z79.899 Other long term (current) drug therapy

== ENCOUNTER 2019-07-03 22:53 | Emergency (ER) | payer MEDICARE ==
[2019-07-03] MEDS ORDERED: hydrALAZINE HCl 20 MG/ML VIAL IV ONE (23:02)
--- NOTE | 2019-07-03 23:09 | ED.PDOC ---
History of Present Illness - General Chief Complaint: General Stated Complaint: headache, shakey, CP earlier Time Seen by Provider: 07/03/19 22:56 Source: patient, RN notes reviewed, Vital Signs reviewed, old records Exam Limitations: no limitations - History of Present Illness Initial Comments: Pt is a 78 yo female with PMH of HTN and TIA's. States she has had achy right sided FERRO all day, states her BP "goes up and down" and feeling "shaky on the inside. Earlier today, states she felt a "fluttering" in her chest, but denies CP, SOB, cough, fever, weakness or difficulty speaking. Allergies/Adverse Reactions: Allergies Sulfa Antibiotics Allergy (Severe, Verified 07/03/19 23:09) Rash Lisinopril Allergy (Mild, Verified 07/03/19 23:09) Other makes her cough Sulfamethoxazole w/Trimethoprim [From Bactrim] Allergy (Unknown, Verified 07/03/19 23:09) Acetaminophen [From Tylenol with Codeine #3] Allergy (Verified 07/03/19 23:09) Unknown Codeine [From Tylenol with Codeine #3] Allergy (Verified 07/03/19 23:09) Unknown Cyclobenzaprine Allergy (Verified 07/03/19 23:09) Tizanidine Allergy (Verified 07/03/19 23:09) Unknown Tramadol Allergy (Verified 07/03/19 23:09) Unknown Aspirin Adverse Reaction (Verified 07/03/19 23:09) Other Feels like it [place] her stomache Causes constipation Hydralazine Adverse Reaction (Verified 07/04/19 00:37) after one dose patient C/O "thumping in her throat" C/O increased HR and not liking how that medication made her feel Ibuprofen Adverse Reaction (Verified 07/03/19 23:09) Other Causes constipation Home Medications: Ambulatory Orders Multiple Vitamin [Multi-Vitamin] 1 tab PO DAILY 03/16/14 Raloxifene HCl [Evista] 60 mg PO DAILY 03/16/14 Rivaroxaban [Xarelto] 20 mg PO DAILY 10/28/16 Losartan Potassium 50 mg PO DAILY 10/15/17 Furosemide [Lasix] 20 mg PO DAILY PRN 03/07/18 Potassium Chloride 8 meq PO DAILY 03/07/18 Review of Systems - Review of Systems Constitutional: Denies: chills, fever, weakness EENTM: Denies: blurred vision, double vision, nose congestion, throat pain Respiratory: Denies: cough, short of breath Cardiology: States: palpitations. Denies: chest pain, edema, syncope Gastrointestinal/Abdominal: Denies: abdominal pain, nausea, vomiting Musculoskeletal: Denies: back pain, neck pain Skin: States: no symptoms reported Neurological: States: headache. Denies: paresthesia, tingling, weakness Hematologic/Lymphatic: States: no symptoms reported All other Systems: Reviewed and Negative Past Medical History (General) - Patient Medical History Hx Seizures: No Hx Stroke: No - TIAs x's 3 Hx Dementia: No Hx Asthma: No Hx of COPD: No Hx Cardiac Disorders: Yes Hx Congestive Heart Failure: No Hx Pacemaker: No Hx Hypertension: Yes Hx Thyroid Disease: No Hx Diabetes: No Hx Gastroesophageal Reflux: Yes Hx Renal Disease: No Hx Cancer: Yes - cervical prior to removal; 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 Hx of HIV: No Hx Hepatitis C: No Hx MRSA: No Surgical History: cholecystectomy, Hysterectomy - Vaccination History Hx Tetanus, Diphtheria Vaccination: No Hx Influenza Vaccination: Yes Hx Pneumococcal Vaccination: Yes - Social History Hx Tobacco Use: No Hx Chewing Tobacco Use: No Hx Alcohol Use: No Hx Substance Use: No Hx Substance Use Treatment: No Hx Depression: No Hx Physical Abuse: No Hx Emotional Abuse: No Hx Suspected Abuse: No - Female History Patient : No Family Medical History - Family History Brother Family History: No Known Living Status: Hx Family Asthma: No Hx Family Congestive Heart Failure: No Hx Family Hypertension: No Hx Family Stroke: No Hx Cardiac Disease: Yes Hx Family Diabetes: No Hx Family Cancer: No Mother Family History: No Known Living Status: Hx Family Asthma: No Hx Family Congestive Heart Failure: Yes Hx Family Hypertension: No Hx Family Stroke: No Hx Cardiac Disease: No Hx Family Diabetes: No Hx Family Cancer: No Physical Exam - Physical Exam General Appearance: Alert, No apparent distress, Other - Anxious appearing Eye Exam: bilateral normal - PERRL Ears, Nose, Throat: normal pharynx Neck: non-tender, full range of motion, supple Respiratory: chest non-tender, lungs clear, normal breath sounds, no respiratory distress, no accessory muscle use Cardiovascular/Chest: regular rate, rhythm, no edema, no murmur Gastrointestinal/Abdominal: non tender, soft, no pulsatile mass Back Exam: normal inspection, no vertebral tenderness Extremity: normal range of motion, non-tender, no pedal edema, no calf t enderness 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 Speech is fluent Skin Exam: normal color Progress - Progress Progress: 07/03/19 23:11 Pt presents with 1 day h/o achy FERRO, feeling shaky inside and intermittent episodes of hypertension at home. No neuro deficits on exam. Will get CT brain to r/o ICH. Get labs and EKG. Give IV antihypertensive due to elevated BP and monitor in ED. 07/04/19 00:05 Recheck patient. Post IV Hydralazine BP 136/84. Pt denies FERRO or any pain at this time. Awaiting urine results. 07/04/19 00:19 I discussed with pt labs and imaging. BP was improving. then stated that she can feel her heart beating and became anxious. Pt agreeable to Ativan and monitoring in ED. 07/04/19 00:43 After ativan, pt denies pain or SOB. Much less anxious on exam. I have d/w pt and family results and need to f/u with her PCP in 1-2 days for recheck in BP med evaluation. - Results/Orders Results/Orders: CT BRAIN FINDINGS: There is patchy hypoattenuation in the cerebral white matter which is nonspecific but suggestive of chronic microvascular ischemic changes. Focal hypodensity in the left basal ganglia is suggestive of an old lacunar infarct versus prominent perivascular space. There is no acute intracranial hemorrhage. No mass. No midline shift. No ventriculomegaly. Genao-white matter differentiation is maintained. Mild paranasal sinus mucosal thickening is present. Mastoid air cells and middle ear spaces are clear. Changes of lens replacement noted. Osseous structures are unremarkable. Surrounding soft tissues are unremarkable. IMPRESSION: No acute intracranial process. CHEST XRAY EXAM DESCRIPTION: XR CHEST 1 VIEW CLINICAL HISTORY: Palpitations TECHNIQUE: Single frontal view of the chest is submitted. COMPARISON: 06/17/2019 FINDINGS: Heart: The cardiothoracic silhouette is within normal limits. Lungs: Left upper lobe calcified granuloma. Patchy bibasilar opacities. Mediastinum: Thoracic aortic atherosclerosis. Pleura: No appreciable effusion. No pneumothorax. Bones: Multilevel spondylosis. No acute fracture. Upper abdomen: Unremarkable IMPRESSION: Patchy bibasilar opacities (atelectasis and/or infiltrate). 07/03/19 23:01 IV:Start .ONCE 07/03/19 23:15 EKG .ONCE 07/03/19 23:45 Urine Culture Stat Laboratory Results - last 24 hr 07/03/19 07/03/19 07/03/19 23:17 23:17 23:17 WBC 6.1 RBC 4.75 Hgb 13.4 Hct 41.1 MCV 86.5 MCH 28.3 MCHC 32.7 L RDW 15.8 H Plt Count 202 MPV 7.4 Absolute Neuts (auto) 3.40 Absolute Lymphs (auto) 2.00 Absolute Monos (auto) 0.40 Absolute Eos (auto) 0.20 Absolute Basos (auto) 0.10 Neutrophils % 57.0 Lymphocytes % 32.4 Monocytes % 6.2 Eosinophils % 3.5 Basophils % 0.9 Sodium 137 Potassium 3.7 Chloride 104 Carbon Dioxide 25 Anion Gap 11.7 L BUN 23 H Creatinine 0.66 BUN/Creatinine Ratio 34.8 H Random Glucose 106 H Serum Osmolality 277.9 Calcium 8.9 Total Bilirubin 0.7 AST 23 ALT 16 Alkaline Phosphatase 37 L Troponin I < 0.02 Serum Total Protein 6.7 Albumin 4.0 Globulin 2.7 Albumin/Globulin Ratio 1.5 Urine Color Urine Appearance Urine pH Ur Specific [place] Urine Protein Urine Glucose (UA) Urine Ketones Urine Blood Urine Nitrite Urine Bilirubin Urine Urobilinogen Ur Leukocyte Esterase Urine RBC Urine WBC Ur Epithelial Cells Calcium Oxalate Crystal Urine Bacteria Urine Mucus 07/03/19 23:45 WBC RBC Hgb Hct MCV MCH MCHC RDW Plt Count MPV Absolute Neuts (auto) Absolute Lymphs (auto) Absolute Monos (auto) Absolute Eos (auto) Absolute Basos (auto) Neutrophils % Lymphocytes % Monocytes % Eosinophils % Basophils % Sodium Potassium Chloride Carbon Dioxide Anion Gap BUN Creatinine BUN/Creatinine Ratio Random Glucose Serum Osmolality Calcium Total Bilirubin AST ALT Alkaline Phosphatase Troponin I Serum Total Protein Albumin Globulin Albumin/Globulin Ratio Urine Color Yellow Urine Appearance Clear Urine pH 5.5 Ur Specific [place] >= 1.030 Urine Protein Negative Urine Glucose (UA) Negative Urine Ketones 15 H Urine Blood Negative Urine Nitrite Negative Urine Bilirubin Small H Urine Urobilinogen 0.2 Ur Leukocyte Esterase Small H Urine RBC 0 Urine WBC 5-10 H Ur Epithelial Cells 0 Calcium Oxalate Crystal 2+ Urine Bacteria Rare Urine Mucus Moderate - EKG/XRAY/CT Comments: NSR, rate 76, nml intervals, nonspecific ST abnormality Departure - Departure Clinical Impression: Accelerated hypertension, Palpitations Headache Qualifiers: Headache type: unspecified Headache chronicity pattern: acute headache Intractability: not intractable Qualified Code(s): R51 - Headache Time of Disposition: 00:53 Disposition: Discharge to Home or Self Care Condition: Good Departure Forms: ED Discharge - Pt. Copy, Patient Portal Self Enrollment Instructions: High Blood Pressure (DC) Diet: resume usual diet Referrals: Farhad Del Rio MD [Primary Care Provider] - 1-2 Days Home Medications: Ambulatory Orders Multiple Vitamin [Multi-Vitamin] 1 tab PO DAILY 03/16/14 Raloxifene HCl [Evista] 60 mg PO DAILY 03/16/14 Rivaroxaban [Xarelto] 20 mg PO DAILY 10/28/16 Losartan Potassium 50 mg PO DAILY 10/15/17 Furosemide [Lasix] 20 mg PO DAILY PRN 03/07/18 Potassium Chloride 8 meq PO DAILY 03/07/18
--- NOTE | 2019-07-03 23:53 | RAD ---
EXAM DESCRIPTION: XR CHEST 1 VIEW CLINICAL HISTORY: Palpitations TECHNIQUE: Single frontal view of the chest is submitted. COMPARISON: 06/17/2019 FINDINGS: Heart: The cardiothoracic silhouette is within normal limits. Lungs: Left upper lobe calcified granuloma. Patchy bibasilar opacities. Mediastinum: Thoracic aortic atherosclerosis. Pleura: No appreciable effusion. No pneumothorax. Bones: Multilevel spondylosis. No acute fracture. Upper abdomen: Unremarkable IMPRESSION: Patchy bibasilar opacities (atelectasis and/or infiltrate). Electronically signed by: Sage Hernandez MD 07/03/2019 11:51 PM CDT
--- NOTE | 2019-07-03 23:56 | CT ---
EXAM DESCRIPTION: Head CLINICAL HISTORY: headache COMPARISON: CT head May 14, 2018 TECHNIQUE: Multiple helical axial tomographic images were obtained of the head without intravenous contrast. This exam was performed according to our departmental dose-optimization program, which includes automated exposure control, adjustment of the mA and/or kV according to patient size and/or use of iterative reconstruction technique. FINDINGS: There is patchy hypoattenuation in the cerebral white matter which is nonspecific but suggestive of chronic microvascular ischemic changes. Focal hypodensity in the left basal ganglia is suggestive of an old lacunar infarct versus prominent perivascular space. There is no acute intracranial hemorrhage. No mass. No midline shift. No ventriculomegaly. Genao-white matter differentiation is maintained. Mild paranasal sinus mucosal thickening is present. Mastoid air cells and middle ear spaces are clear. Changes of lens replacement noted. Osseous structures are unremarkable. Surrounding soft tissues are unremarkable. IMPRESSION: No acute intracranial process. Electronically signed by: José Miguel Rausch MD 07/03/2019 11:54 PM CDT
[2019-07-04 01:01] VITALS: BP 134/74; TEMP 97.4; O2SAT 96
== END 2019-07-04 01:15 | disposition home or self-care (01) ==
LOC: ER 22:53
DX: I10 Essential (primary) hypertension (principal); R51 Headache; R00.2 Palpitations; F41.9 Anxiety disorder, unspecified; Z86.73 Personal history of transient ischemic attack (TIA), and cerebral infarction without residual deficits
CPT/HCPCS: 70450; 71045; 80053; 81001; 84484; 85025; 87086; 93005; J0360; J2060

== ENCOUNTER → 2019-07-07 | Outpatient (CLI) | payer MEDICARE ==
--- NOTE | 2019-07-07 15:06 | US ---
EXAM DESCRIPTION: Carotid Duplex: ULTRASOUND. CLINICAL HISTORY: 78 years Female OTHER SPECIFIED SYMPTOMS AND SIGNS INVOLVING THE CIRCULATORY AND COMPARISON: CT scan of the head July 02. TECHNIQUE: Transcutaneous scanning utilizing bergeron-scale and Doppler modes to evaluate the bilateral carotid systems and vertebral arteries. Percentage of diameter of stenosis or no stenosis recorded will be based upon NASCET criteria. FINDINGS: Peak systolic/end diastolic (CM-Sec) CCA Right 75/12 Left 76/11. ICA Right proximal 43/8, distal 64/14. Left proximal 38/10, Distal 59/15. Vertebral Right visualized Left 70/14. ECA (PS Only) Right 83 left 60. ICA/CCA peak systolic ratio: Right 0.9 Left 0.8 ICA/CCA end diastolic ratio: Right 1.2 Left 1.3 Vertebral arteries: Left vertebral antegrade flow. Right vertebral artery not seen Comments: Atherosclerotic calcifications bilateral carotid bifurcations. Left CCA bulb: 15 % area stenosis and 21% diameter stenosis. Right common carotid bulb: 16% area and diameter stenosis. IMPRESSION: 1. Doppler evaluation of the bilateral carotid systems and vertebral arteries shows no hemodynamically significant stenoses. 2. No significant amount of plaque in the carotid arteries bilaterally. Bilateral vertebral arteries showed antegrade-cephalad flow. Electronically signed by: Olaf Blanco MD 07/07/2019 3:04 PM CDT
== END ==
LOC: US 10:47
PROVIDERS: ATTEND Family Medicine
DX: R09.89 Other specified symptoms and signs involving the circulatory and respiratory systems (principal)

== ENCOUNTER → 2019-09-20 | Outpatient (CLI) | payer MEDICARE ==
--- NOTE | 2019-09-21 17:37 | US ---
US THYROID CLINICAL STATEMENT:79 years Female NONTOXIC NODULE. COMPARISON: None TECHNIQUE: Transcutaneous scanning, grayscale and Doppler modes. FINDINGS: Size right thyroid lobe: 3.8 x 1.4 x 1.2 cm Size left thyroid lobe: 6.1 x 1.9 x 1.6 cm Size isthmus: 0.4 cm Estimated total number of nodules greater than or equal to 1 cm: 1. Nodule 1: Size: 2.3 x 2.0 x 1.9 cm Location: Left Lower Composition: solid or almost completely solid: 2 points Echogenicity: hypoechoic: 2 points Shape: wider than tall: 0 points Margins: ill-defined: 0 points Echogenic foci: none: 0 points ACR Total Points: 4; ACR TI-RADS risk category: TR4 - moderately suspicious nodule. No dominant solid mass, no distinct cyst, no peripheral or large calcifications, no fluid collection. No overlying skin changes. IMPRESSION: 1. Nodule 1: ACR TI-RADS 2017 Category TR4. Recommend: Ultrasound-guided fine needle aspiration. Recommendations based upon [facility] Best [employer] recommendations and ACR TI-RADS 2017 guidelines. Please see below*. 2. Soft tissue around the thyroid gland is unremarkable. *ACR TI-RADS 2017 Recommendations for imaging follow-up of nodules: TR1: No FNA or follow up TR2: No FNA or follow up TR3: FNA if >/= 2.5 cm, follow up if 1.5 - 2.4 cm in 1, 3, and 5 years TR4: FNA if >/= 1.5 cm, follow up if 1.0 - 1.4 cm in 1, 2, 3, and 5 years TR5: FNA if >/= 1.0 cm, follow up if 0.5 - 0.9 cm every year for 5 years ACR TI-RADS recommends that no more than two nodules with the highest ACR TI-RADS total point should be biopsied and no more than four nodules should be followed. These recommendations do not apply to patients with increased risk for thyroid cancer or patients with symptomatic thyroid disease. Electronically signed by: Olaf Blanco MD 09/21/2019 4:04 PM CDT
== END ==
LOC: US 13:30
PROVIDERS: ATTEND Family Medicine
DX: E04.1 Nontoxic single thyroid nodule (principal)

== ENCOUNTER → 2019-09-22 | Outpatient (CLI) | payer MEDICARE | LOC: GMAM 15:08 | PROVIDERS: ATTEND Family Medicine | DX: E04.1 Nontoxic single thyroid nodule (principal) ==

== ENCOUNTER → 2019-09-23 | Outpatient (CLI) | payer MEDICARE ==
--- NOTE | 2019-09-23 13:45 | RAD ---
EXAM DESCRIPTION: Hand,Left 3 Views CLINICAL HISTORY: PAIN IN LEFT HAND COMPARISON: None. IMPRESSION: 3 views of the left hand show diffuse osteopenia the osseous structures. Mildly comminuted fracture involving the neck of the distal fifth metacarpal with mild radial and volar angulation of the distal fracture fragment. Mild soft tissue swelling of the hand is seen. Moderate to severe joint space narrowing and joint line osteophytes of the DIP joints and first interphalangeal joint are seen with mild gullwing deformity suggesting erosive osteoarthritis Mild to moderate joint space narrowing of the PIP joints and MCP joints compatible with mild to moderate osteoarthritic changes. Severe osteoarthritic changes of the first carpometacarpal joint are seen. Electronically signed by: Blaine Hall MD 09/23/2019 1:44 PM CDT
== END ==
LOC: RAD 09:40
PROVIDERS: ATTEND Orthopaedic Surgery
DX: S62.335A Displaced fracture of neck of fourth metacarpal bone, left hand, initial encounter for closed fracture (principal); M85.842 Other specified disorders of bone density and structure, left hand; M20.092 Other deformity of left finger(s); M25.742 Osteophyte, left hand; M18.9 Osteoarthritis of first carpometacarpal joint, unspecified; M25.842 Other specified joint disorders, left hand

== ENCOUNTER → 2019-09-30 | Outpatient (CLI) | payer MEDICARE | END | disposition home or self-care (01) | LOC: MRI 10:52 | PROVIDERS: ATTEND Orthopaedic Surgery | DX: M25.512 Pain in left shoulder (principal) ==

== ENCOUNTER → 2019-11-21 | Outpatient (CLI) | payer MEDICARE | LOC: LAB.O 09:49 | PROVIDERS: ATTEND Orthopaedic Surgery | DX: Z01.818 Encounter for other preprocedural examination (principal); Z01.812 Encounter for preprocedural laboratory examination ==

== ENCOUNTER → 2019-12-19 | Outpatient (CLI) | payer MEDICARE | LOC: GMAM 16:05 | PROVIDERS: ATTEND Family Medicine | DX: B34.2 Coronavirus infection, unspecified (principal); R71.8 Other abnormality of red blood cells; R09.02 Hypoxemia ==

== ENCOUNTER → 2019-12-20 | Day surgery (SDC) | payer MEDICARE | LOC: AMB 05:29 | PROVIDERS: ATTEND Orthopaedic Surgery | DX: M25.511 Pain in right shoulder (principal); Z53.8 Procedure and treatment not carried out for other reasons ==

== ENCOUNTER → 2020-03-16 | Outpatient (CLI) | payer MEDICARE | LOC: GMAM 13:08 | PROVIDERS: ATTEND Family Medicine | DX: Z01.812 Encounter for preprocedural laboratory examination (principal) ==

== ENCOUNTER → 2020-03-20 | Outpatient (CLI) | payer MEDICARE | LOC: LAB.O 09:26 | PROVIDERS: ATTEND Orthopaedic Surgery | DX: Z01.818 Encounter for other preprocedural examination (principal) ==